=== PATIENT | male | born 1980 | race Caucasian/White ===

== ENCOUNTER 2018-05-29 08:53 | Day surgery (SDC) | payer BC ==
--- OUTSIDE RECORDS SUMMARY | 2018-05-29 09:00 | XMS REPORT ---
:1980 Author Organization e[employer]Works Care Team Providers Name Role Phone Brian Nikunj Provider Role Unavailable Allergies, Adverse Reactions, Alerts Substance Reaction Event Type N.K.D.A. Info Not Available Non Drug Allergy Problems Problem Type Condition Code Onset Dates Condition Status Assessment Mixed hyperlipidemia E78.2 Active Problem Irritability and anger R45.4 Active Assessment Generalized anxiety disorder F41.1 Active Problem Low back pain M54.5 Active Problem Generalized anxiety disorder F41.1 Active Problem Vitamin D deficiency E55.9 Active Problem Other chronic pain G89.29 Active Problem Primary insomnia F51.01 Active Problem Obstructive sleep apnea G47.33 Active Problem Mixed hyperlipidemia E78.2 Active Assessment Other chronic pain G89.29 Active Assessment Obstructive sleep apnea G47.33 Active Assessment Low back pain M54.5 Active Assessment Irritability and anger R45.4 Active Medications Medication Code Code Instructions Start End Status Dosage System Date Date Augmentin [facility] 63401328431 875-125 MG February 12, February 22, Active 1 tablet Orally every 12 2017 2018 hrs Zoloft [facility] 41720388867 100 MG Orally Active 1 tablet Once a day Duloxetine HCl [facility] 11486140629 30 MG Orally February 18, Active 1 capsule Once a day 2017 Wellbutrin SR [facility] 06597374006 150 MG Orally Active 1 tablet Twice a day Results No Known Results Summary Purpose eClinicalWorks Submission
--- OUTSIDE RECORDS SUMMARY | 2018-05-29 09:00 | XMS REPORT ---
:1980 Author Organization [employer] Care Team Providers Name Role Phone Nasir Torresh Provider Role Unavailable Allergies, Adverse Reactions, Alerts Substance Reaction Event Type N.K.D.A. Info Not Available Non Drug Allergy Problems Problem Type Condition Code Onset Dates Condition Status Problem Irritability and anger R45.4 Active Assessment Acute non-recurrent frontal J01.10 Active sinusitis Problem Low back pain M54.5 Active Problem Generalized anxiety disorder F41.1 Active Problem Vitamin D deficiency E55.9 Active Problem Other chronic pain G89.29 Active Problem Primary insomnia F51.01 Active Problem Obstructive sleep apnea G47.33 Active Problem Mixed hyperlipidemia E78.2 Active Medications Medication Code Code Instructions Start End Date Status Dosage System Date Zoloft [facility] 93880263513 100 MG Orally Active 1 tablet Once a day Wellbutrin SR [facility] 85403374553 150 MG Orally Active 1 tablet Twice a day Augmentin [facility] 05633573274 875-125 MG February 12, February 22, Active 1 tablet Orally every 12 2017 2018 hrs Results No Known Results Summary Purpose eClinicalWorks Submission
--- OUTSIDE RECORDS SUMMARY | 2018-05-29 09:00 | XMS REPORT ---
:1980 Author Organization [employer]Works Care Team Providers Name Role Phone Brian Nikunj Provider Role Unavailable Allergies, Adverse Reactions, Alerts Substance Reaction Event Type N.K.D.A. Info Not Available Non Drug Allergy Problems Problem Type Condition Code Onset Dates Condition Status Assessment Generalized anxiety disorder F41.1 Active Problem Primary insomnia F51.01 Active Problem Irritability and anger R45.4 Active Problem Vitamin D deficiency E55.9 Active Problem Low back pain M54.5 Active Problem Erectile dysfunction, unspecified N52.9 Active erectile dysfunction type Problem Mixed hyperlipidemia E78.2 Active Problem Other chronic pain G89.29 Active Problem Generalized anxiety disorder F41.1 Active Problem Obstructive sleep apnea G47.33 Active Assessment Low back pain M54.5 Active Assessment Irritability and anger R45.4 Active Assessment Other chronic pain G89.29 Active Assessment Erectile dysfunction, unspecified N52.9 Active erectile dysfunction type Assessment Obstructive sleep apnea G47.33 Active Assessment Mixed hyperlipidemia E78.2 Active Medications Medication Code Code Instructions Start End Status Dosage System Date Date Duloxetine HCl [facility] 13750845405 30 MG Orally Inactive 1 capsule Once a day Sertraline HCl ND 18707036878 50 MG Orally March 23, Active 1 tablet Once a day 2017 (Total 150 el=121 mg + 50 mg) Cialis [facility] 37403996169 20 MG Orally March 23, May 22, Active 1 tablet Once a day PRN 2017 [address] [facility] 23309500481 100 MG Orally Active 1 tablet Once a day (Total 150 rd=373 mg + 50 mg) Results No Known Results Summary Purpose eClinicalWorks Submission
[2018-05-29] MEDS ORDERED: Ringers Lactate 1,000 ML IV ONE ×2 (09:05→12:41)
[2018-05-29] MEDS: BUPIVACA 0.5%/EPI 0.0005%/PF 30 ML VIAL ONE ×2 (10:50→12:58)
[2018-05-29] MEDS ORDERED: PROPOFOL 200 MG/20 ML VIAL IV ONE (11:39)
[2018-05-29] MEDS ORDERED: ROCURONIUM 50 MG/5 ML VIAL IV ONE (11:40)
[2018-05-29] MEDS ORDERED: MIDAZOLAM HCL 2 MG/2 ML INJ ONE (11:40)
[2018-05-29] MEDS ORDERED: FENTANYL CITR 250 MCG/5 ML ONE (11:40)
[2018-05-29] MEDS ORDERED: LIDOCAINE 1% MPF 5 ML VIAL ONE (11:44)
[2018-05-29] MEDS: CEFAZOLIN/SWI 1gm 2 GM/20 ML SYR ONE ×2 (11:46→12:01)
[2018-05-29] MEDS ORDERED: ONDANSETRON HCL 40 MG/20 ML VIAL ONE (12:33)
[2018-05-29] MEDS ORDERED: KETOROLAC 30 MG/ML INJ ONE ×2 (12:33→15:03)
[2018-05-29] MEDS ORDERED: NEOSTIGMINE 1 MG/ML -5 ML SYRINGE ONE (12:33)
[2018-05-29] MEDS ORDERED: GLYCOPYRROLATE 0.2 MG/ML SYR ONE (12:33)
[2018-05-29] MEDS ORDERED: EPINEPHRINE/PF 1 MG/ML AMP ONE (12:35)
--- NOTE | 2018-05-29 13:00 | P.BOP ---
Preoperative diagnosis: PIPER Postoperative diagnosis: PIPER Primary procedure: UPPP Secondary procedure: tonsillectomy Estimated blood loss: 10ml Specimen: Bilat tonsils, SP, uvula Anesthesia: General Complications: None Fluids & blood products: crystalloid 1000ml Transferred to: Recovery Room Condition: Good
[2018-05-29] MEDS ORDERED: PROMETHAZINE 25 MG/ML VIAL ONE (13:16)
[2018-05-29] MEDS: MEPERIDINE HCL 50 MG/ML AMP ONE ×3 (13:17→13:40)
[2018-05-29] MEDS ORDERED: HYDROCOD 2.5mg-ACETAMIN 108mg/5mL Soln ONE (14:21)
[2018-05-29] MEDS ORDERED: KETOROLAC 30 MG/ML INJ IV ONE (15:00)
--- NOTE | 2018-06-01 12:57 | OP ---
Date of Procedure: 05/29/2018 Surgeon: Wen Wilks MD Preoperative Diagnosis: Mixed sleep apnea including significant obstructive sleep apnea, intolerance of CPAP therapy. Postoperative Diagnosis: Mixed sleep apnea including significant obstructive sleep apnea, intoleranc e of CPAP therapy. Procedure: Bilateral tonsillectomy and uvulopalatopharyngoplasty. Indication For Procedure: Thong Koroma is a 38-year-old who underwent a sleep study showing a signific ant AHI. The risks, benefits, and alternatives to the procedure were discussed with the patient who agreed to proceed. Description Of Procedure: The patient was brought to the operating room. He was placed under genera l anesthesia via oral endotracheal tube. The head of bed was turned 90 degrees and a shoulder roll w as placed for extension of the neck. The McIvor mouth gag was placed for exposure of the oropharynx. The patient was noted to have enlarged tonsils including significant submucosal component on palpat ion and decision was made to proceed with tonsillectomy. A red rubber catheter was passed through th e right naris and withdrawn through the mouth, and secured to the head drape for suspension of the so ft palate. The left tonsil was grasped with an Allis clamp and Bovie electrocautery was used to inci se the mucosa along the anterior pillar. The capsule of the tonsil was identified. The patient was noted to have significant chronic tonsillitis with scarring and increased vascularity along the capsu le of the tonsil. The tonsil also extended significantly towards the base of tongue and careful diss ection was undertaken to avoid damage to the underlying musculature. The left tonsil was completely removed and passed off as surgical specimen. There were no significant suspicious lesions, ulceratio ns, or masses noted in the tonsil. The right tonsil was removed in a similar fashion. Both tonsils were moderately enlarged with significant submucosal component and scarring making removal more diffi cult than average. After tonsillectomy, a tonsil ball was packed into the tonsillar fossa to aid in hemostasis and attention was turned to the palate, pharynx, and uvula. Soft palate was noted to be s ignificantly enlarged, elongated. There was also significant elongation of the uvula. Surgical opti ons were considered and decision was made for an anterior palatoplasty. A 1.5 x 0.5 cm area on the a nterior pillar was outlined. A needlepoint Bovie electrocautery was used to incise through the mucos a along this rectangle and the mucosal and submucosal surfaces were surgically removed and passed off as surgical specimen. The defect was then closed in an interrupted fashion using 4-0 chromic suture s. This closure allowed advancement of the soft palate superiorly and inferiorly without compromisin g the function of the musculature. This appeared to give good improvement in the anterior-posterior diameter of the oropharynx behind the soft palate. A partial uvulectomy was then performed. A DeBak ey was used to grasp the tip of the uvula extending it to its anatomic length. Approximately, 1/2 to 2/3 of the uvula was divided using the needlepoint Bovie electrocautery. The specimen was sent kenneth g with the soft palate tissue to pathology. The mucosal defect on the tip of the uvula was closed us ing 2-0 chromic interrupted sutures. The packing from the tonsillar fossa was then removed and the p harynx and tonsillar pillars were examined. The tonsillar fossas were noted to be hemostatic with no significant bleeding. A small incision was made in the left anterior pillar in order to allow berto r approximation of the pillars. The posterior pillar was advanced anteriorly and the anterior and po sterior pillars were sutured bilaterally in order to open up the lateral pharyngeal wall, the pillars were well approximated. The oropharynx was irrigated and suctioned. An orogastric tube was passed for removal of stomach contents, which was minimal. Overall blood loss was mild. The patient's qawalangin te was then injected with local anesthetic to aid in the immediate postop pain control, and the patie nt was returned to care of anesthesia for awakening and extubation in the operating room, which proce eded without difficulty. Disposition: The patient will be observed in the post anesthesia unit and if doing well, will likely be discharged home later today. LUTHER/EITAN Voice ID: [id number] Report ID: [id number]
== END 2018-05-29 15:45 | disposition home or self-care (01) ==
LOC: OR 08:53
PROVIDERS: ATTEND Otolaryngology
PROC: 0CTNXZZ Resection of Uvula, External Approach (ICD-10-PCS; 2018-05-29)
PROC: 0CTPXZZ Resection of Tonsils, External Approach (ICD-10-PCS; principal; 2018-05-29 11:15)
DX: G47.33 Obstructive sleep apnea (adult) (pediatric) (principal)
CPT/HCPCS: 88300; 88304; J0171; J0690; J2175; J2250; J2405; J2550; J2710

== ENCOUNTER 2021-04-10 20:40 | Emergency (ER) | payer BC ==
--- OUTSIDE RECORDS SUMMARY | 2021-04-10 20:43 | XMS REPORT | Continuity of Care Document ---
:1980 Author Organization [facility] t Address [address] [place] [address] Care Team Providers Name Role Phone Lab, Fam Pob I Attending Clinician Unavailable Doctor Unassigned, Name Attending Clinician Unavailable Singer FALLON Attending Clinician Problems Condition Condition Condition Status Onset Resolution Last Treating Co mments Source Name Details Category Date Date Treatment Clinician Date Irritabili Irritabili Problem Active [facility] Low back Low back Problem [facility] Generalize Generalize Problem Active [facility] anxiety d anxiety [facility] - disorder disorder [facility] Vitamin D Vitamin D Problem Active [facility] deficiency deficiency [facility] Other Other Problem Active [facility] chronic chronic [facility] Primary Primary Problem Active [facility] insomnia [facility] Obstructiv Obstructiv Problem Active [facility] sleep e sleep [facility] Mixed Mixed Problem Active [facility] hyperlipid hyperlipid [facility] - emia emia [facility] Erectile Erectile Problem Active [facility] dysfunctio dysfunctio [facility]y [facility]es - n, n, Memoria unspecifie unspecifie l d erectile d erectile Ou tpati dysfunctio dysfunctio en t n type n type Clinics Seasonal Seasonal Problem Active [facility] allergic allergic [facility] rhinitis, rhinitis, Pérez karan unspecifie unspecifie l d trigger d trigger Outp ati ent Clinics Decreased Decreased Problem Active [facility] libido libido [facility] Allergies, Adverse Reactions, Alerts This patient has no known allergies or adverse reactions. Medications Ordered Filled Start Stop Current Ordering Indication Dosage Frequency Signature Comments Components Source Medication Medication Date Date Medication? Clinician (SIG) Name Name Zoloft Zoloft Yes Nikunj 1 tablet [facility] Procedures This patient has no known procedures. Encounters Start End Encounter Admission Attending Care Care Encounter Source Date/Time Date/Time Type Type Clinicians Facility Department ID 2020-05-03 2020-05-03 Laboratory Lab, [facility] [id number] 13:38:46 13:58:46 Only Fam Pob [facility] [id number] [place] [id number] [facility] [id number] nal [address] 2020-05-03 2020-05-03 Letter Doctor JYOTI [id number] 00:00:00 00:00:00 (Out) Unassigned, MICHELLE [id number] [place] [facility] [id number] 2020-04-14 2020-04-14 Emergency Quiroz, [facility] [id number] 20:34:56 23:45:00 [place] Aguilar [id number] [place] [id number] [place] [id number] 2019-07-19 2019-07-19 [facility] [id number] [facility] 08:27:00 08:27:00 [employer] 2019-06-29 2019-06-29 [facility] [id number] 09:52:00 09:52:00 [employer] 2019-05-27 2019-05-27 [facility] [id number] [facility] 12[facility]09:00 12:09:00 [employer] [facility] 2019-05-18 2019-05-18 [facility] [id number] [facility] 10:30:00 10:30:00 [employer] [facility] Outpat[facility] Clinics 2018-11-10 2018-11-10 [facility] [id number] [facility] 08:37:00 08:37:00 [employer] [facility]pati ent Clinics 2018-11-02 2018-11-02 [facility] [id number] 11:00:00 11:00:00 [employer] [facility] Outpat[facility] ent Clinics 2018-10-05 2018-10-05 [facility] [id number] 11:45:00 11:45:00 t [facility] Outpat[facility] ent Clinics 2018-03-23 2018-03-23 [facility] [id number] [facility] 13:45:00 13:45:00 [employer] [facility] Outpati ent Clinics 2018-02-18 2018-02-18 [facility] [id number] [facility] 09:15:00 09:15:00 [employer] [facility] ent Clinics 2018-02-12 2018-02-12 [facility] [id number] [facility] 11:00:00 11:00:00 [facility] [employer] [facility] Outpati ent Clinics Results This patient has no known results.
[2021-04-10 21:33] LABS: Urine Blood Negative (Negative); Urine Glucose 1+ (Negative); Urine Protein Negative (Negative)
[2021-04-10] MEDS ORDERED: MORPHINE 2 MG/ML SYR ONE (21:42)
[2021-04-10] MEDS ORDERED: ONDANSETRON 4 MG/2 ML VIAL ONE (21:42)
[2021-04-10 21:45] LABS: Absolute Lymphocytes (CBC) 1.3 K/uL (0.7-4.9); Basophils % 0.6 % (0-1.3); Hematocrit 43.7 % (39.6-49.0); Lymphocytes % 21.1 % (15.3-44.8)
[2021-04-10 21:48] LABS: Barbiturates NEGATIVE (NEGATIVE); Benzodiazepines NEGATIVE (NEGATIVE); Cocaine NEGATIVE (NEGATIVE); METHAMPHETAM NEGATIVE (NEGATIVE); Methadone NEGATIVE (NEGATIVE); Opiates NEGATIVE (NEGATIVE); Phencyclidine NEGATIVE (NEGATIVE); THC Cannibis NEGATIVE (NEGATIVE)
[2021-04-10 21:52] LABS: Protime INR 1.1
[2021-04-10 21:59] LABS: ALT/SGPT 60 U/L (12-78); AST/SGOT 24 U/L (15-37); Albumin 4.3 g/dL (3.4-5.0); Alkaline Phosphatase 88 U/L (45-117); BUN Blood Urea Nitrogen 15 mg/dL (7-18); Bicarbonate 28 mmol/L (21-32); Bilirubin Direct 0.2 mg/dL (0-0.2); Bilirubin Total 0.9 mg/dL (0.2-1.0); Glucose Level 71 mg/dL (74-106); Magnesium 2.2 mg/dL (1.8-2.4); NT PRO-BNP 7 pg/mL (<125); Potassium 3.6 mmol/L (3.5-5.1); Protein, Total 8.1 g/dL (6.4-8.2); Sodium Level 140 mmol/L (136-145); Troponin (Emerg Dept Use Only) < 0.02 ng/mL (0.0-0.045)
[2021-04-11] MEDS ORDERED: KETOROLAC 30 MG/ML INJ ONE (01:32)
--- NOTE | 2021-04-11 02:28 | EDPHYS ---
Physician Documentation [facility] Name: Thong Koroma Age: 41 yrs Sex: Male : 1980 Arrival Date: 04/10/2021 Time: 20:41 Bed 16 Private MD: Jovita Clements K ED Physician Ander Mar HPI: 04/10 22:18 This 41 yrs old Male presents to ER via Ambulatory with complaints of Chest mh7 Pain, Shortness Of Breath. 22:18 The patient or guardian reports chest pain that is located primarily in the anterior mh7 chest wall, left. 22:19 The pain radiates to the left arm, left back. Associated signs and symptoms: Pertinent mh7 positives: shortness of breath, Pertinent negatives: abdominal pain, cough, diaphoresis, headache, lower extremity pain, lower extremity swelling, nausea, near syncope, palpitations, recent travel, syncope, vomiting. The chest pain is described as tightness. Duration: The patient or guardian reports multiple episodes, that are intermittent, that wax and wane. Modifying factors: The symptoms are alleviated by nothing. the symptoms are aggravated by nothing. Severity of pain: At its worst the pain was moderate today, in the emergency department the pain has improved moderately. Historical: - Allergies: 20:50 No Known Allergies; ca1 - Home Meds: 20:50 losartan 100 mg oral tab 1 tab once daily [Active]; Bystolic 5 mg oral tab 1 tab once ca1 daily [Active]; Zoloft Oral [Active]; - PMHx: 20:50 Hypertension; Sleep Apnea; ca1 - PSHx: 20:50 back surgery; sleep apnea surgery - throat; ca1 - Immunization history:: Client reports receiving the 2nd dose of the Covid vaccine, Client reports receiving the 1st dose of the Covid vaccine, Flu vaccine is up to date. - Social history:: Smoking status: Patient denies any tobacco usage or history of. Patient uses alcohol, occasionally. ROS: 22:19 Constitutional: Negative for fever, chills, and weight loss, Eyes: Negative for injury, mh7 pain, redness, and discharge, ENT: Negative for injury, pain, and discharge, Abdomen/GI: Negative for abdominal pain, nausea, vomiting, diarrhea, and constipation, : Negative for injury, bleeding, discharge, and swelling, MS/Extremity: Negative for injury and deformity, Skin: Negative for injury, rash, and discoloration, Neuro: Negative for headache, weakness, numbness, tingling, and seizure, Psych: Negative for depression, anxiety, suicide ideation, homicidal ideation, and hallucinations, Allergy/Immunology: Negative for hives, rash, and allergies, Endocrine: Negative for neck swelling, polydipsia, polyuria, polyphagia, and marked weight changes, Hematologic/Lymphatic: Negative for swollen nodes, abnormal bleeding, and unusual bruising. Exam: 22:19 Constitutional: This is a well developed, well nourished patient who is awake, alert, mh7 and in no acute distress. Head/Face: Normocephalic, atraumatic. Eyes: Pupils equal round and reactive to light, extra-ocular motions intact. Lids and lashes normal. Conjunctiva and sclera are non-icteric and not injected. Cornea within normal limits. Periorbital areas with no swelling, redness, or edema. Neck: Trachea midline, no thyromegaly or masses palpated, and no cervical lymphadenopathy. Supple, full range of motion without nuchal rigidity, or vertebral point tenderness. No Meningismus. Chest/axilla: Normal chest wall appearance and motion. Nontender with no deformity. No lesions are appreciated. Cardiovascular: Regular rate and rhythm with a normal S1 and S2. No gallops, murmurs, or rubs. Normal PMI, no JVD. No pulse deficits. Respiratory: Lungs have equal breath sounds bilaterally, clear to auscultation and percussion. No rales, rhonchi or wheezes noted. No increased work of breathing, no retractions or nasal flaring. Abdomen/GI: Soft, non-tender, with normal bowel sounds. No distension or tympany. No guarding or rebound. No evidence of tenderness throughout. Back: No spinal tenderness. No costovertebral tenderness. Full range of motion. Skin: Warm, dry with normal turgor. Normal color with no rashes, no lesions, and no evidence of cellulitis. MS/ Extremity: Pulses equal, no cyanosis. Neurovascular intact. Full, normal range of motion. Neuro: Awake and alert, GCS 15, oriented to person, place, time, and situation. Cranial nerves II-XII grossly intact. Motor strength 5/5 in all extremities. Sensory grossly intact. Cerebellar exam normal. Normal gait. Psych: Awake, alert, with orientation to person, place and time. Behavior, mood, and affect are within normal limits. Vital Signs: 20:46 BP 121 / 90; Pulse 76; Resp 16 S; Temp 97.6(TE); Pulse Ox 100% on R/A; Weight 107.95 kg ca1 (R); Height 5 ft. 7 in. (170.18 cm) (R); Pain 7/10; 22:26 BP 101 / 76; Pulse 71; Resp 16; Pulse Ox 96% on R/A; jm8 04/11 01:29 BP 95 / 74; Pulse 72; Resp 16; Pulse Ox 96% on R/A; 02:34 BP 102 / 78; Pulse 76; Resp 16; Pulse Ox 99% on R/A; 8 04/10 20:46 Body Mass Index 37.28 (107.95 kg, 170.18 cm) ca1 MDM: 02:25 Differential diagnosis: acute myocardial infarction, acute pericarditis, anxiety, mh7 coronary artery disease chest wall pain, costochondritis, gastroesophageal reflux disease (GERD), myocarditis, pericarditis, pneumonia, pneumothorax, pulmonary embolus. HEART Score: History: Moderately Suspicious (1), ECG: Normal (0), Age: < or = 45 years (0), Risk Factors: 1 or 2 risk factors (1), [Hypertension] Troponin: < or = 1 x Normal Limit (0), Total Score = 2. Data reviewed: vital signs, nurses notes, lab test result(s), cardiac enzymes, CBC, electrolytes, urinalysis, EKG, radiologic studies, plain films. Data interpreted: Pulse oximetry: on room air is 98 %. Interpretation: normal. Counseling: I had a detailed discussion with the patient and/or guardian regarding: the historical points, exam findings, and any diagnostic results supporting the discharge/admit diagnosis, lab results, radiology results, the need for outpatient follow up, to return to the emergency department if symptoms worsen or persist or if there are any questions or concerns that arise at home. Response to treatment: the patient's symptoms have resolved after treatment, the patient's blood pressure is in an acceptable range, mental status has returned to baseline, the patient no longer shows bradycardia, the patient is not short of breath, the patient is not tachycardic, the patient's pain is gone, the patient's temperature has normalized. 02:28 Patient medically screened. 7 04/10 21:17 Order name: Basic Metabolic Panel [facility] 04/10 21:17 Order name: CBC with Diff [facility] 04/10 21:17 Order name: LFT's [facility] 04/10 21:17 Order name: Magnesium [facility] 04/10 21:17 Order name: NT PRO-BNP [facility] 04/10 21:17 Order name: PT-INR [facility] 04/10 21:17 Order name: Troponin (emerg Dept Use Only) [facility] 04/10 21:17 Order name: D-Dimer [facility] 04/10 21:17 Order name: UDS [facility] 04/10 21:33 Order name: Urine Dipstick-Ancillary; Complete Time: 23:15 EDMS 04/10 21:48 Order name: Urine Drug Screen; Complete Time: 23:15 [facility] 04/10 21:52 Order name: CBC with Automated Diff; Complete Time: 23:15 [facility] 04/10 21:59 Order name: Basic Metabolic Panel; Complete Time: 23:15 EDMS 04/10 21:59 Order name: Liver (Hepatic) Function; Complete Time: 23:15 EDMS 04/10 21:17 Order name: XRAY Chest (1 view) [facility] 04/10 21:17 Order name: EKG; Complete Time: 21:18 [facility] 04/10 21:17 Order name: Cardiac monitoring; Complete Time: 21:32 [facility] 04/10 21:17 Order name: EKG - Nurse/Tech; Complete Time: 21:32 [facility] 04/10 21:17 Order name: IV Saline Lock; Complete Time: 21:32 [facility] 04/10 21:17 Order name: Labs collected and sent; Complete Time: 21:32 [facility] 04/10 21:59 Order name: Troponin (Emerg Dept Use Only); Complete Time: 23:15 EDMS 04/10 21:59 Order name: NT PRO-BNP; Complete Time: 23:15 EDMS 04/10 21:59 Order name: Magnesium; Complete Time: 23:15 EDMS 04/10 22:01 Order name: Protime (+INR); Complete Time: 23:15 EDMS 04/10 22:01 Order name: D-Dimer; Complete Time: 23:15 [facility] 04/11 01:02 Order name: Troponin (emerg Dept Use Only) [facility] 04/11 01:54 Order name: Troponin (Emerg Dept Use Only); Complete Time: 02:22 [facility] 04/10 21:17 Order name: O2 Per Protocol; Complete Time: 21:32 [facility] 04/10 21:17 Order name: O2 Sat Monitoring; Complete Time: 21:32 [facility] 04/10 21:17 Order name: Urine Dipstick-Ancillary (obtain specimen); Complete Time: 21:35 [facility] Administered Medications: 04/10 21:33 Drug: Zofran (Ondansetron) 4 mg Route: IVP; Site: left antecubital; [facility] 04/11 02:36 Follow up: Response: No adverse reaction [facility] 04/10 21:34 Drug: morphine 2 mg Route: IVP; Site: left antecubital; [facility] 04/11 02:36 Follow up: Response: No adverse reaction [facility] 01:19 Drug: TORadol (ketorolac) 30 mg Route: IVP; Site: left antecubital; [facility] 02:35 Follow up: Response: No adverse reaction [facility] Disposition: 04/11/21 02:28 Discharged to Home. Impression: Chest pain, unspecified. - Condition is Stable. - Discharge Instructions: Nonspecific Chest Pain, [id number]. - Medication Reconciliation Form, Thank You Letter, Antibiotic Education, Prescription Opioid Use form. - Follow up: Private Physician; When: 1 - 2 days; Reason: Worsening of condition, Recheck today's complaints, Continuance of care, Re-evaluation by your physician. - Problem is an ongoing problem. - Symptoms have improved. Signatures: Dispatcher [employer] [facility] Laurita Sun RN RN 3 Columba Cloud RN RN ca1 Andre Mar MD MD [facility] Romie Tan RN RN 8 Corrections: (The following items were deleted from the chart) 04/10 22:20 22:18 The pain radiates to the left arm, [place] [id number] 04/11 02:36 02:28 04/11/2021 02:28 Discharged to Home. Impression: Chest pain, unspecified. [facility] Condition is Stable. Forms are Medication Reconciliation Form, Thank You Letter, Antibiotic Education, Prescription Opioid Use. Follow up: Private Physician; When: 1 - 2 days; Reason: Worsening of condition, Recheck today's complaints, Continuance of care, Re-evaluation by your physician. Problem is an ongoing problem. Symptoms have improved. mh7
--- NOTE | 2021-04-11 02:28 | ER ---
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 Been to the supervisor drapery hanging ca1 Friday, had seen stress on my heart and said I need to do a stress test once my BP is controlled. Today, chest pain has gotten worse, radiates to the back, L elbow. Chest pain with SOB now, was not before. Coronavirus screen: Client denies travel out of the [place] in the last 14 days. shortness of breath, Client presents with at least one sign or symptom that may indicate coronavirus-19. Standard/surgical mask placed on the client. Provider contacted for isolation considerations. Ebola Screen: Patient negative for fever greater than or equal to 101.5 degrees Fahrenheit, and additional compatible Ebola Virus Disease symptoms Patient denies exposure to infectious person. Patient denies travel to an Ebola-affected area in the 21 days before illness onset. No symptoms or risks identified at this time. Initial Sepsis Screen: Does the patient meet any 2 criteria? No. Patient's initial sepsis screen is negative. Does the patient have a suspected source of infection? No. Patient's initial sepsis screen is negative. Risk Assessment: Do you want to hurt yourself or someone else? Patient reports no desire to harm self or others. Onset of symptoms was April 10, 2021. 20:46 Method Of Arrival: Ambulatory ca1 20:46 Acuity: REG 3 ca1 Historical: - Allergies: 20:50 No Known Allergies; ca1 - Home Meds: 20:50 losartan 100 mg oral tab 1 tab once daily [Active]; Bystolic 5 mg oral tab 1 tab once ca1 daily [Active]; Zoloft Oral [Active]; - PMHx: 20:50 Hypertension; Sleep Apnea; ca1 - PSHx: 20:50 back surgery; sleep apnea surgery - throat; ca1 - Immunization history:: Client reports receiving the 2nd dose of the Covid vaccine, Client reports receiving the 1st dose of the Covid vaccine, Flu vaccine is up to date. - Social history:: Smoking status: Patient denies any tobacco usage or history of. Patient uses alcohol, occasionally. Screenin:34 Abuse screen: Denies threats or abuse. Denies injuries from another. Nutritional jm8 screening: No deficits noted. Tuberculosis screening: No symptoms or risk factors identified. Fall Risk None identified. Assessment: 21:33 General: Appears in no apparent distress. uncomfortable, Behavior is calm, cooperative, jm8 appropriate for age. Pain: Complains of pain in chest Pain does not radiate. Pain currently is 10 out of 10 on a pain scale. Pain began 3 hours ago. Noted to be quiet/stoic. Neuro: No deficits noted. Level of Consciousness is awake, alert, obeys commands, Oriented to person, place, time. Cardiovascular: Reports chest pain, shortness of breath, Patient's skin is warm and dry. Rhythm is regular Chest pain is described as Pain is 10 out of 10 on a pain scale. Respiratory: No deficits noted. Airway is patent Trachea midline Respiratory effort is even, unlabored, Respiratory pattern is regular, symmetrical. GI: No deficits noted. No signs and/or symptoms were reported involving the gastrointestinal system. : No deficits noted. No signs and/or symptoms were reported regarding the genitourinary system. EENT: No deficits noted. No signs and/or symptoms were reported regarding the EENT system. Vital Signs: 20:46 BP 121 / 90; Pulse 76; Resp 16 S; Temp 97.6(TE); Pulse Ox 100% on R/A; Weight 107.95 kg ca1 (R); Height 5 ft. 7 in. (170.18 cm) (R); Pain 7/10; 22:26 BP 101 / 76; Pulse 71; Resp 16; Pulse Ox 96% on R/A; jm8 04/11 01:29 BP 95 / 74; Pulse 72; Resp 16; Pulse Ox 96% on R/A; jm8 02:34 BP 102 / 78; Pulse 76; Resp 16; Pulse Ox 99% on R/A; jm8 04/10 20:46 Body Mass Index 37.28 (107.95 kg, 170.18 cm) ca1 ED Course: 04/10 12:15 Inserted saline lock: 20 gauge in left antecubital area, using aseptic technique. Blood ap3 collected. 20:41 Patient arrived in ED. am4 20:41 Jovita Clements MD is Private Physician. am4 20:49 Triage completed. ca1 20:50 Arm band placed on right wrist. ca1 20:56 Andre Mar MD is Attending Physician. [facility] 21:35 Patient has correct armband on for positive identification. Bed in low position. Call jm8 light in reach. Side rails up X2. Pulse ox on. NIBP on. 21:35 Patient maintains SpO2 saturation greater than 95% on room air. 8 04/11 02:36 No provider procedures requiring assistance completed. IV discontinued, intact. jm8 Administered Medications: 04/10 21:33 Drug: Zofran (Ondansetron) 4 mg Route: IVP; Site: left antecubital; 3 04/11 02:36 Follow up: Response: No adverse reaction [facility] 04/10 21:34 Drug: morphine 2 mg Route: IVP; Site: left antecubital; ap3 04/11 02:36 Follow up: Response: No adverse reaction [facility] 01:19 Drug: TORadol (ketorolac) 30 mg Route: IVP; Site: left antecubital; [facility] 02:35 Follow up: Response: No adverse reaction [facility] Outcome: 02:28 Discharge ordered by . [facility] 02:35 Discharged to home ambulatory. [facility] 02:35 Condition: good 02:35 Discharge instructions given to patient, Instructed on discharge instructions, follow up and referral plans. Demonstrated understanding of instructions, follow-up care. 02:36 Patient left the ED. jm8 Signatures: Laurita Sun RN RN ap3 Columba Cloud RN RN ca1 Andre Mar MD MD mh7 Martinez, Ashley [facility] Romie Tan RN RN jm8
[2021-04-11 02:42] VITALS: TEMP 97.6
[2021-04-11 02:47] VITALS: BP 102/78; O2SAT 99
--- NOTE | 2021-04-11 13:41 | RAD REPORT ---
EXAM DESCRIPTION: Chest Single View 04/11/2021 12:22 AM CDT CLINICAL HISTORY: 41 years, Male, CHEST PAIN COMPARISON: None. FINDINGS: Single view of the chest was obtained portable. No prior films are available for compariso n. The cardiomediastinal silhouette demonstrate to be unremarkable. The heart is not enlarged. The thoracic aorta is unremarkable. There is no evidence for pneumothorax. Costophrenic angles are sharp. No areas of consolidation or masses are seen. The rest of the soft tissue and bony structures de monstrate to be unremarkable. IMPRESSION: NO ACUTE CARDIOPULMONARY DISEASE SEEN. Electronically signed by: Luan Gillis MD 04/11/2021 12:22 AM CDT Due to temporary technical issues with the PACS/Fluency reporting system, reports are being signed by the in house radiologists without review as a courtesy to insure prompt reporting. The interpreting radiologist is fully responsible for the content of the report.
--- NOTE | 2021-04-11 16:31 | EKG ---
Test Date: 2021-04-10 Test Time: 20:58:37 Irrigation Worker: JESÚS MEASUREMENT RESULTS: Intervals: Rate: 77 DC: 164 QRSD: 98 QT: 390 QTc: 441 [place]: P: 23 DC: 164 QRS: 22 T: 7 INTERPRETIVE STATEMENTS: Normal sinus rhythm Normal ECG No previous ECG available for comparison Electronically Signed On 04-11-21 16:29:44 CDT by Tarik Sandoval
== END 2021-04-11 02:36 | disposition home or self-care (01) ==
LOC: ER 20:40
DX: R07.9 Chest pain, unspecified (principal); I10 Essential (primary) hypertension
CPT/HCPCS: 93005; 85025; 80048; 36415; 83735; 85610; 85379; 80076; 81003; 84484 ×2; 83880; 80307; 71045; J2270; J2405; 96374; 96375; 99284

== ENCOUNTER 2024-08-27 07:45 | Day surgery (SDC) | payer BC ==
--- NOTE | 2024-08-26 11:58 | EKG ---
Test Date: 2024-08-24 Test Time: 10:34:26 Application Support Developer: IRENE MEASUREMENT RESULTS: Intervals: Rate: 88 CA: 144 QRSD: 98 QT: 374 QTc: 452 [place]: P: 29 CA: 144 QRS: 5 T: 51 INTERPRETIVE STATEMENTS: Normal sinus rhythm Nonspecific T wave abnormality Abnormal ECG Compared to ECG 04/10/2021 20:58:37 T-wave abnormality now present Electronically Signed On 08-26-24 11:56:20 SHELLFISH PROCESSING MACHINE TENDER by Álvaro Diana
[2024-08-27] MEDS ORDERED: Ringers Lactate 1,000 ML IV ONE (08:13)
[2024-08-27] MEDS ORDERED: LIDOCAINE 1% MPF 5 ML VIAL ONE (09:44)
[2024-08-27] MEDS ORDERED: propofoL 200 MG/20 ML VIAL IV ONE ×2 (09:44→10:55)
--- NOTE | 2024-08-27 11:11 | P.OP ---
Date of Service: 08/27/24 Surgeon: Dr. Wen Wilks Occupational Therapy Assist: None Procedure: Evaluation of sleep disordered breathing by examination of upper airway using an endoscope; CPT: 26614 Preoperative diagnosis: Moderate or severe obstructive sleep apnea with positive airway pressure intolerance. Body mass index 36.2 Postoperative diagnosis: Moderate or severe sleep apnea with positive pressure airway intolerance. Anesthesia: IV sedation Estimated blood loss: None Complications: None Brief clinical history: This is a 44-year-old patient with a history of moderate to severe symptomatic obstructive sleep apnea who is intolerant and unable to achieve benefit with positive pressure therapy. The patient was diagnosed with sleep apnea including an AHI of 63 and minimum oxygen concentration of 81% in December 2017. His AHI was 9.8 with an oxygen jeramy of 85% with 41 central and 7 obstructive events on his CPAP titration but was intolerant of UPPP. In 2007, the patient underwent tonsillectomy with anterior soft palate palatoplasty in 2017. The patient did not initially follow through with his postoperative sleep study and noted that his snoring and daytime fatigue were increasing during the spring 2018. He refused repeat trial of CPAP due to prior intolerance and tingling in the hose. At that time, he was referred to the [facility] for discussion of hypoglossal nerve stimulator. He subsequently underwent a sleep study in March 2019 demonstrating an AHI of 35.9 with an oxygen jeramy of 80% which included 19 obstructive apneas, 187 hypopneas and 2 central events with poor sleep quality, poor sleep efficiency and abnormal sleep architecture with loud snoring. Due to the relative newness of the treatment he elected for observation but return to my clinic in the fall 2023 with motivation to treat his persistent severe sleep apnea. They present today for drug-induced sleep endoscopy to better characterize the location and pattern of obstruction and to predict appropriate medical and/or surgical options moving forward Procedure findings: There was no evidence of complete concentric palatal obstruction and they appear to be a candidate anatomically for hypoglossal nerve stimulation therapy. However, the patient was not observed to have significant collapse of the base of tongue and did have moderate to severe collapse of the lateral hypopharyngeal ramires during witnessed obstructive events and snoring. Description of procedure: The patient was brought to the endoscopy suite and was administered anesthesia via standard drug-induced sleep endoscopy protocol. The patient was administered propofol while under monitoring including oxygen concentration, CO2, blood pressure, and pulse under conditions felt to mimic sleep. The patient was nonresponsive to verbal commands but maintained spontaneous respiration. Patient was noted to have observed apnea and snoring consistent with diagnosis of obstructive sleep apnea. Under these conditions, the flexible endoscope was inserted into both sides of the nose and advanced to the nasopharynx, and oral pharynx with observation of the larynx. The flexible scope was passed initially through the left nasal cavity. The patient was noted to have left septal deviation with a large septal spur which impaired passage of the scope. The scope was then passed through the right nasal cavity into the nasopharynx. During initial observations, there was minimal collapse of the soft palate. There were observed respiratory efforts but no audible snoring. The scope was then passed further towards the larynx. The vocal cords and epiglottis and vallecular space and piriforms were unremarkable in regards to anatomy. During initiation of snoring, there was minimal observed collapse of the base of tongue but there was visualized vibration and collapse of the lateral hypopharyngeal ramires. The scope was then slightly withdrawn for additional observation of the palate. During snoring, there was partial concentric collapse of the soft palate. At the conclusion of the exam, the scope was withdrawn. There was no evidence of any injury to the nasal mucosa and no evidence of active epistaxis. The patient was monitored with spontaneous ventilation until the patient's level of alertness increased and they responded to verbal commands and demonstrated active and intact control of their airway. The patient was then transferred to appropriate recovery prior to discharge. In summary, there was no evidence of complete concentric palatal obstruction. There were no absolute contraindications to implant for hypoglossal nerve stimulation. Will plan to discuss findings with the patient prior to initiating a plan for surgery. I was present for and personally performed the entire procedure.
[2024-08-27 12:23] VITALS: TEMP 97.7
[2024-08-27 12:24] VITALS: BP 149/119; O2SAT 98
== END 2024-08-27 11:45 | disposition home or self-care (01) ==
LOC: OR 07:45
PROVIDERS: ATTEND Otolaryngology
PROC: 0CJY8ZZ Inspection of Mouth and Throat, Via Natural or Artificial Opening Endoscopic (ICD-10-PCS; principal; 2024-08-27 09:30)
DX: G47.39 Other sleep apnea (principal); Z68.36 Body mass index [BMI] 36.0-36.9, adult
CPT/HCPCS: 93005; 42975; J2704; J2003; J7120

== ENCOUNTER 2024-10-08 08:54 | Day surgery (SDC) | payer BC ==
[2024-10-08] MEDS: Ringers Lactate 1,000 ML IV ONE (09:15)
[2024-10-08] MEDS ORDERED: MIDAZOLAM HCL 2 MG/2 ML INJ ONE (12:29)
[2024-10-08] MEDS ORDERED: FENTANYL CITR 100 MCG/2 ML ONE ×5 (12:29→20:16)
[2024-10-08] MEDS ORDERED: LIDOCAINE 2% MPF 5 ML VIAL ONE (12:29)
[2024-10-08] MEDS ORDERED: propofoL 200 MG/20 ML VIAL IV ONE (12:29)
[2024-10-08] MEDS ORDERED: ROCURONIUM 50 MG/5 ML VIAL IV ONE (12:34)
[2024-10-08] MEDS ORDERED: ONDANSETRON 4 MG/2 ML VIAL ONE (12:36)
[2024-10-08] MEDS: FENTANYL CITR 100 MCG/2 ML IV ONE (13:38)
[2024-10-08] MEDS: LIDOCAINE HCL/EPINEPHRINE 20 ML MDV ONE (14:30)
[2024-10-08] MEDS: CEFAZOLIN SODIUM 1 GM/VIAL ONE (14:35)
[2024-10-08] MEDS ORDERED: dexAMETHasone 10 MG/ML VIAL ONE (14:36)
[2024-10-08] MEDS ORDERED: Phenylephrine HCl 10 MG/ML 1 ML VIAL ONE ×2 (14:37→15:03)
[2024-10-08] MEDS ORDERED: METHOCARBAMOL 1,000 MG/10 ML VIAL IV ONE (15:08)
[2024-10-08] MEDS ORDERED: NS 0.9% VIAL 10 ML ONE (15:43)
[2024-10-08] MEDS ORDERED: Mastisol Adhesive Liq ONE (18:51)
--- NOTE | 2024-10-08 19:16 | P.OP ---
Date of Service: 10/08/24 Surgeon: Dr. Wen Wilks CPT: 38347 insertion of hypoglossal nerve neurostimulator electrode and generator and breathing sensor electrode Preoperative diagnosis: Obstructive sleep apnea with positive airway pressure intolerance Postoperative diagnosis: Same Anesthesia: General via endotracheal tube Estimated blood loss: 10ml Complications: [None] Intraoperative findings: Initial placement of cuff showed mixed stimulation with protraction at higher voltages but retraction at lower voltages requiring reposition and more extensive exploration of the hypoglossal nerve branches. With repositioning of the cuff the patient was noted to have good protrusion at all tested voltages and programs. Brief clinical history: This is a 44-year-old patient with a history of moderate to severe obstructive sleep apnea and an associated body mass index of 35.6. The patient was intolerant and unable to achieve benefit from positive pressure therapy. The patient has passed the clinical, polysomnographic, and endoscopic screening criteria and presents today for implant Procedure description: The patient was brought to the operating room and placed under general anesthesia via endotracheal intubation. The head of bed was turned 180 degrees. The patient's neck and external anatomy was palpated and examined with planned incisions marked with a surgical pen. Monitoring electrodes were placed within the genioglossus and hypoglossal muscle and connected to the NIM box for intraoperative nerve monitoring. The grounding electrode was placed in the patient's left shoulder. The patient's face, neck, and chest was prepped and draped in a sterile fashion with the head turned to the left for best exposure of the right neck. A modified submandibular incision was made through the skin, approximately 2 cm below the inferior aspect of the mandible. Dissection was carried down through the subcutaneous tissue and platysma. The platysma was divided and additional dissection was carried out for identification of the anterior/inferior border of the submandibular gland. During dissection there is a prominent lymph node that was normal in size and morphology but was removed and sent to pathology for additional diagnostic consideration. Suspicion for true pathology was low. The digastric tendon was identified. 2 silk sutures were placed in the digastric tendon to aid in inferior and anterior retraction. Dissection continued down into the digastric triangle and the posterior border of the mylohyoid muscle was freed and retracted anteriorly. With balanced retraction, the hypoglossal nerve was identified and carefully dissected up towards the floor of the mouth. The superior/posterior branches innervating the hyoglossus muscle were identified visually with anatomic clues and NIM stimulation. Once the anterior/inferior branches of the hypoglossal nerve were isolated, the cuff electrode for the hypoglossal nerve stimulator (C1778; [id number]) was placed distal to these branches innervating the genioglossus, transverse, and vertical muscles. A second 5 cm incision was made in the right upper chest over the second intercostal space, approximately 3 cm lateral to the sternal margin. Dissection was carried down through the skin and subcutaneous tissue to the fascia of the pectoralis muscle. A suprafascial inferior pocket for the generator was created with blunt dissection and the LigaSure. The pectoralis major fascia was dissected directly over the second intercostal space with subsequent blunt dissection through the muscle body. The pectoralis was retracted to expose the fatty layer just superficial to the external intercostal muscle. The fatty layer was carefully and bluntly dissected to expose the external intercostal muscles. A small fasciotomy through the external intercostals was performed and the respiratory sensing lead (C1778; [id number]) was advanced with the sensor facing the pleura into the interfascial plane between the external and internal intercostals. The sensing lead was anchored with 3-0 silk to the fascia of the external intercostals. Secondary anchoring sutures of 3-0 silk were placed to the pectoralis major fascia, allowing adequate slack between the anchors. The stimulation lead was then tunneled in a subplatysmal plane with blunt dissection under direct visualization and brought out to the subclavicular pocket where both the stimulation lead and respiratory sensing lead were connected to the implantable pulse generator, using the 2 person, 3 handed chloe cartagena. The implantable pulse generator (C1767; [id number]) was placed in the subclavicular subcutaneous pocket ensuring lead body was deep to the generator and secured with air knots to the pectoralis fascia using 2-0 silk suture. Initial diagnostic evaluation revealed retraction of the tongue low voltages suggesting inadvertent inclusion of a small retractor branch. Attention was then returned to the neck subsite and the cuff was examined in regards to its positioning. I elected to remove the cuff and perform further dissection around and of the nerve including further elevation of the large b ridging vein towards the distal end of the nerve. The cuff was then repositioned slightly more distally to its initial placement. Additional diagnostic evaluation confirmed good placement of the stimulation cuff as demonstrated by activation of the genioglossus, and transverse and vertical muscles resulting in unhindered, stiffened tongue protrusion confirmed visually. Diagnostic evaluation also confirmed good respiratory sensor placement as demonstrated by sensing waveform with good rise and fall associated with patient respirations. The stimulation lead was anchored to the digastric tendon using the 2 previously placed silk sutures. Slack between the cuff and the anchor was gently tucked deep to the submandibular gland. All the wounds were thoroughly irrigated and closed in 3 layers with deep Polysorb sutures and 4-0 Monocryl subcuticular sutures. Mastisol and Steri- Strips were applied followed by pressure dressings. The patient was awakened, extubated, and transferred to the recovery room in stable condition. I was present for and performed the entire procedure. All sponge and needle counts were confirmed correct by the operating room staff prior to final closure. Postoperative plan: The patient will be discharged home later today in the care of their family and follow-up with Dr. Wilks in 10 days for wound check and suture removal if required. They will follow-up with the earth science professor in about 6 weeks for planned activation of the device.
--- NOTE | 2024-10-08 19:38 | RAD REPORT ---
EXAMINATION: ONE VIEW CHEST XR CLINICAL INDICATION: Male, 44 years old.,S/P INSPIRE TECHNIQUE: Frontal chest projection is submitted. Examination is limited by patient positioning and t echnique. COMPARISON: 04/10/2021 FINDINGS: The lungs are under inflated. Right apical hazy airspace opacity. No pneumothorax or sizable effusio n. The heart is normal in size. Mediastinal contours show tortuosity of the thoracic aorta. Right chest wall battery pack in place. Electrode courses along the right lower neck. IMPRESSION: Right apical hazy airspace opacity, may reflect developing pneumonia or atelectasis.
--- NOTE | 2024-10-08 19:39 | RAD REPORT ---
EXAMINATION: ONE VIEW NECK XR CLINICAL INDICATION: Male, 44 years old.,S/P INSPIRE TECHNIQUE: Lateral neck projection is submitted. Examination is limited by patient positioning and te chnique. COMPARISON: No prior exam. FINDINGS: No stimulator electrode terminates along the floor of mouth. No abnormal kinking or discontinuity. Pr evertebral soft tissues are unremarkable. IMPRESSION: Postoperative appearance as above.
[2024-10-08] MEDS: HYDROMORPHONE HCL 1 MG/ML INJ ONE (19:43)
[2024-10-08] MEDS: HYDROMORPHONE HCL 2 MG/ML inj ONE (19:53)
[2024-10-08] MEDS ORDERED: HYDROCODONE/APAP 10/325 TAB PO ONE (20:23)
[2024-10-08 21:21] VITALS: TEMP 98
[2024-10-08] MEDS: TRAMADOL HCL 50 MG TAB ONE (22:00)
[2024-10-08 22:21] VITALS: BP 136/85; O2SAT 100
== END 2024-10-08 22:17 | disposition home or self-care (01) ==
LOC: OR 08:54
PROVIDERS: ATTEND Otolaryngology
PROC: 0JH63MZ Insertion of Stimulator Generator into Chest Subcutaneous Tissue and Fascia, Percutaneous Approach (ICD-10-PCS; principal; 2024-10-08 13:56)
DX: G47.33 Obstructive sleep apnea (adult) (pediatric) (principal); Z68.36 Body mass index [BMI] 36.0-36.9, adult
CPT/HCPCS: 88305; 71045; 70360; 64582; A4216; J2704; J2371 ×2; J2003; J2250; J1171 ×2; J3010 ×5; J1100; J2405; J2800; J7120; J0690

== ENCOUNTER 2024-10-16 13:12 | Observation (INO) | payer BC ==
--- OUTSIDE RECORDS SUMMARY | 2024-10-16 13:15 | XMS REPORT | Continuity of Care Document ---
Author Name Unknown Address [address] [facility] [place] [address] [facility] Address [address] [facility]. [address] [place] [address] Care Team Providers Care Career Development Manager Name Role Phone Pcp, Patient Does Not Have A Primary Care Physic shima De Sutton Attending Clinician [phone] DE MENDENHALL Attending Clinician Unavaila IQRA Cha Attending Clinician Unavailable Ebrahim Iqra SEBASTIAN Attending Clinician [phone] Unknown, Attending Attending Clinician Unavailab le Doctor Unassigned, Basco Attending Clinician U JEFE Bartlett Attending Clinician Unavailable Lab, Adc Fam Pob I Attending Clinician Unavailab Sierra Estrada Attending Clinician [phone] SIERRA BARRETT Attending Clinician Unavailable Manav Quiroz DO Attending Clinician [phone] MANAV QUIROZ Attending Clinician Unavailable DE MENDENHALL Admitting Clinician Unavaila ble Payers Payer Name Policy Type Policy Number Effective Date Expirati on Date Source Problems Condition Name Condition Details Condition Category Status Onset Date Resolution Date Last Treatment Date Treating Clinician Comments Source Irritabili ty and anger Irritabili ty and anger Problem Active [facility] Low back pain Low back pain Problem Active [facility] Generalize d anxiety disorder Generalize d anxiety disorder Problem Active [facility] Vitamin D deficiency Vitamin D deficiency Problem Active [facility] Other chronic pain Other chronic pain Problem Active [facility] Primary insomnia Primary insomnia Problem Active [facility] Obstructiv e sleep apnea Obstructiv e sleep apnea Problem Active [facility] Mixed hyperlipid emia Mixed hyperlipid emia Problem Active [facility] Erectile dysfunctio n, unspecifie d erectile dysfunctio n type Erectile dysfunctio n, unspecifie d erectile dysfunctio n type Problem Active [facility] Seasonal allergic rhinitis, unspecifie d trigger Seasonal allergic rhinitis, unspecifie d trigger Problem Active [facility] Decreased libido Decreased libido Problem Active [facility] Allergies, Adverse Reactions, Alerts Allergy Name Allergy Type Status Severity Reaction(s) Onset Date Inactive Date Treating Clinician Comments Source NO KNOWN ALLERGIE S Drug Class Active [facility] Social History Social Habit Start Date Stop Date Quantity Comments Source Gender identity [facility] Sexual orientation U [facility] Exposure to SARS-CoV-2 (event) 2020-03-15 00:00:00 2020-04-14 20:57:00 Not sure [facility] Sex Assigned At 1980 00:00:00 1980 00:00:00 [facility] Smoking Status Start Date Stop Date Source Tobacco smoking consumption unknown [facility] Medications Ordered Medication Name Filled Medication Name Start Date Stop Date Current Medication? Ordering Clinician Indication Dosage Frequency Signature (SIG) Comments Components Source NaCl 0.9% (NS) bolus infusion 1,000 mL 06-02 16:45: 00 06-02 18:51 :00 No 1000mL at 999 mL/hr, 1,000 mL, IV Infusion, ONCE, 1 dose, On Fri06/02/23 at 1145, [facility] acetaminoph en (TYLENOL) tablet 1,000 mg 06-02 16:30: 00 06-02 16:21 :00 No 1000mg 1,000 mg, Oral, ONCE, 1 dose, On Fri06/02/23 at 1130, [facility] ondansetron (ZOFRAN (PF)) injection 4 mg 06-02 16:00: 00 06-02 16:22 :00 No 4mg 4 mg, Slow IV Push, ONCE, 1 dose, On Fri06/02/23 at 1100, [facility] morpHINE (4 mg/mL) injection 4 mg 06-02 16:00: 00 06-02 16:22 :00 No 4mg 4 mg, Slow IV Push, ONCE, 1 dose, On Fri06/02/23 at 1100, STAT [facility] ibuprofen (IBU) tablet 800 mg 06-02 15:30: 00 06-02 14:40 :00 No [id number] 800mg [facility] ketorolac (TORADOL) injection 30 mg 04-15 04:30: 00 04-15 03:34 :00 No 30mg 30 mg, Intramuscu lar, ONCE, 1 dose, Fri04/14/20 at 2330, [facility]
Fa culty member approving Restricted medication : MANAV QUIROZ [facility] pantoprazol e (PROTONIX) EC tablet 40 mg 04-15 03:00: 00 04-15 01:59 :00 No 40mg 40 mg, Oral, ONCE, 1 dose, Fri04/14/20 at 2200, [facility] diphenhydrA MINE (BENADRYL) tablet 50 mg 04-15 03:00: 00 04-15 01:59 :00 No 50mg 50 mg, Oral, ONCE, 1 dose, Fri04/14/20 at 2200, [facility] famotidine (PEPCID AC) tablet 20 mg 04-15 03:00: 00 04-15 01:58 :00 No 20mg 20 mg, Oral, ONCE, 1 dose, 04/14/20 at 2200, [facility] dexamethaso ne (DECADRON PHOSPHATE) injection 10 mg 04-15 03:00: 00 04-15 02:01 :00 No 10mg 10 mg, Oral, ONCE, 1 dose, Fri04/14/20 at 2200, Routine [facility] clindamycin (CLEOCIN HCL) capsule 300 mg 04-15 01:48: 09 04-15 02:02 :00 No 300mg 300 mg, Oral, O.R. HOLDING ONCE, 1 dose, Starting Fri04/14/20 at 2048, Until Fri04/14/20 at 2102, [facility], Surgery/Pr ocedure
Reason for Anti-Infec tive: Empiric Therapy for Suspected Infection& lt;br>Empi susan Therapy Site: Skin / Soft tissue
Duration of therapy: 72 hours
R estricted use approved by: ADC PROVIDER [facility] methylPREDN ISolone (MEDROL, HAMLET,) 4 mg tablets 04-14 00:00: 00 Yes [id number] Take by mouth SEE-INSTRU CTIONS. follow package directions [facility] acetaminoph en-codeine (TYLENOL-CO DEINE #3) 300-30 mg tablet 04-14 00:00: 00 Yes [id number] 1{tbl} Take 1 tablet by mouth every 4 (four) hours as needed for Pain (scale 7-10). [facility] ondansetron 4 mg disintegrat ing tablet 04-14 00:00: 00 Yes [id number] 4mg Take 1 tablet by mouth every 8 (eight) hours as needed for Nausea and Vomiting (N/V). [facility] clindamycin 150 mg capsule 04-14 00:00: 00 04-22 04:59 :00 No [id number] 300mg Take 2 capsules by mouth 4 (four) times daily for 7 days. [facility] Zoloft Zoloft Yes Nikunj Torres 1 tablet [facility] Vital Signs Vital Name Observation Time Observation Value Comments S ourrichard Systolic blood pressure 2023-06-02 18:00:00 146 mm[Hg] [facility] Diastolic blood pressure 2023-06-02 18:00:00 98 mm[Hg] [facility] Heart rate 2023-06-02 18:00:00 89 /min Unive [facility] Respiratory rate 2023-06-02 18:00:00 13 /min [facility] Oxygen saturation in Arterial blood by Pulse oximetry 2023-06-02 18:00:00 96 /min [facility] Body temperature 2023-06-02 17:10:31 37.5 Marie [facility] Body height 2023-06-02 15:48:00 172.7 cm [facility] Body weight 2023-06-02 15:48:00 102.059 kg [facility] BMI 2023-06-02 15:48:00 34.21 kg/m2 [facility] Systolic blood pressure 2023-06-02 15:06:00 121 mm[Hg] [facility] Diastolic blood pressure 2023-06-02 15:06:00 80 mm[Hg] [facility] Heart rate 2023-06-02 15:06:00 104 /[facility] Oxygen saturation in Arterial blood by Pulse oximetry 2023-06-02 15:06:00 98 /min [facility] Body temperature 2023-06-02 14:38:00 37.39 Marie [facility] Respiratory rate 2023-06-02 14:38:00 18 /min [facility] Body height 2023-06-02 14:38:00 170.2 cm [facility] Body weight 2023-06-02 14:38:00 102.513 kg [facility] BMI 2023-06-02 14:38:00 35.40 kg/m2 [facility] Systolic blood pressure 2020-04-15 04:32:34 124 mm[Hg] [facility] Diastolic blood pressure 2020-04-15 04:32:34 83 mm[Hg] [facility] Heart rate 2020-04-15 04:32:34 91 /min Unive [facility] Body temperature 2020-04-15 04:32:34 36.94 Marie [facility] Respiratory rate 2020-04-15 04:32:34 16 /min [facility] Oxygen saturation in Arterial blood by Pulse oximetry 2020-04-15 04:32:34 99 /min [facility] Body weight 2020-04-15 01:33:00 104.327 kg [facility] Systolic blood pressure 2020-04-15 04:32:34 124 mm[Hg] [facility] Diastolic blood pressure 2020-04-15 04:32:34 83 mm[Hg] [facility] Heart rate 2020-04-15 04:32:34 91 /min [facility] Body temperature 2020-04-15 04:32:34 36.94 Marie [facility] Respiratory rate 2020-04-15 04:32:34 16 /min [facility] Oxygen saturation in Arterial blood by Pulse oximetry 2020-04-15 04:32:34 99 /min [facility] Body weight 2020-04-15 01:33:00 104.327 kg [facility] Procedures Procedure Date / Time Performed Performing Clinician Source CT CERVICAL SPINE WO CONTRAST 2023-06-02 16:38:37 De Mendenhall [facility] CT HEAD WO CONTRAST 2023-06-02 16:38:37 James Mendenhall [facility] LIPASE 2023-06-02 16:12:00 De Mendenhall [facility] TROPONIN I 2023-06-02 16:12:00 De Mendenhall [facility] COMP. METABOLIC PANEL ([id number]) 2023-06-02 16:12:00 De Mendenhall [facility] CBC WITH DIFF 2023-06-02 16:12:00 De Mendenhall [facility] N-TERMINAL PRO-BNP 2023-06-02 16:12:00 Nathanael Mendenhall [facility] LACTIC ACID WHOLE BLOOD 2023-06-02 16:12:00 De Mendenhall [facility] POCT SARS-COV-2 ANTIGEN (BINAX NOW) 2023-06-02 14:57:00 Iqra Manriquez [facility] POCT MOLECULAR STREP 2023-06-02 14:48:00 Unknown, Atte arsenio [facility] POCT MOLECULAR FLU 2023-06-02 14:43:00 Unknown, Attend ing [facility] ASSIGNMENT OF BENEFITS 2023-06-02 14:32:37 Docto r Unassigned, Basco [facility] COMP. METABOLIC PANEL (42016) 2020-04-15 04:04:00 Manav Quiroz [facility] CBC WITH DIFFERENTIAL 2020-04-15 04:04:00 Saman Quiroz [facility] ASSIGNMENT OF BENEFITS 2020-04-15 01:32:00 Docto r Unassigned, Basco [facility] NOTICE OF PRIVACY PRACTICES 2020-04-15 01:27:37 Doctor Unassigned, Basco [facility] CONSENT/REFUSAL FOR DIAGNOSIS AND TREATMENT 2020-04-15 01:27:24 Doctor Unassigned, Basco [facility] Encounters Start Date/Time End Date/Time Encounter Type Admission Type Attending [facility] Care Department Encounter ID Source 2023-06-02 10:44:00 2023-06-02 13:55:00 Emergency De Mendenhall F [facility] 1.840.114 350.1.13.10 4.2.7.2.686 [id number] [facility] 2023-06-02 10:44:00 2023-06-02 13:55:00 Emergency X DE MENDENHALL [facility] ERT [id number] [facility] 2023-06-02 09:40:00 2023-06-02 10:18:23 Outpatient R IQRA MANRIQUEZ [facility] [id number] [facility] 2023-06-02 09:40:00 2023-06-02 10:18:23 Urgent Care Iqra Manriquez Unknown, Attending [facility] 1..840.114 350.1.13.10 4.2.7.2.686 [id number] [facility] 2023-06-02 00:00:00 2023-06-02 00:00:00 Orders Only Doctor Unassigned, Basco [facility] 1.2114 350.1.13.10 4.2.7.2.686 [id number] [facility] 2021-02-06 14:50:00 2021-02-06 14:50:[address] [facility] [id number] [facility] 2021-01-16 14:55:00 2021-01-16 14:55:[address]FE CONNELL [facility] [id number] [facility] 2020-05-05 00:00:00 2020-05-05 00:00:00 Patient Secure Msg Doctor Unassigned, Basco [facility] 1.114 350.1.13.10 4.2.7.2.686 [id number] [facility] 2020-05-03 13:38:46 2020-05-03 13:58:46 Laboratory Only Lab, Count includes the [facility] 1.114 350.1.13.10 4.2.7.2.686 [id number] 2020-05-03 13:38:46 2020-05-03 13:58:46 [facility] 1.114 350.1.13.10 4.2.7.2.686 [id number] [facility] 2020-05-03 13:40:00 2020-05-03 13:40:[address] SIERRA PEREZ [facility] [id number] [facility] 2020-05-03 00:00:00 2020-05-03 00:00:00 Letter (Out) Doctor Unassigned, Basco [facility] 1.2114 350.1.13.10 4.2.7.2.686 [id number] 2020-05-03 00:00:00 2020-05-03 00:00:00 Letter (Out) Doctor Unassigned, Basco [facility] 1.2.840.114 350.1.13.10 4.2.7.2.686 [id number] [facility] 2020-04-14 20:34:56 2020-04-14 23:45:00 Emergency Manav Quiroz [facility] 1.2.840.114 350.1.13.10 4.2.7.2.686 [id number] 2020-04-14 20:34:56 2020-04-14 23:45:00 Emergency [facility] 1.2.840.114 350.1.13.10 4.2.7.2.686 [id number] [facility] 2020-04-14 20:27:00 2020-04-14 20:27:00 Emergency X MANAV QUIROZ [facility] ERT [id number] [facility] 2019-07-19 08:27:00 2019-07-19 08:27:00 [facility] [id number] [facility] 2019-06-29 09:52:00 2019-06-29 09:52:[address] [facility] [address] [facility] [id number] [facility] 2019-05-27 12:09:00 2019-05-27 12:09:00 [facility] [address] [facility] [id number] [facility] 2019-05-18 10:30:00 2019-05-18 10:30:00 [facility] [address] [facility] [id number] [facility] 2018-11-10 08:37:00 2018-11-10 08:37:00 [facility] [facility] [address] [facility] [id number] [facility] 2018-11-02 11:00:00 2018-11-02 11:00:00 Outpatient [facility] [id number] [facility] 2018-10-05 11:45:00 2018-10-05 11:45:00 Outpatient [facility] [id number] [facility] 2018-03-23 13:45:00 2018-03-23 13:45:00 Outpatient [facility] [id number] [facility] 2018-02-18 09:15:00 2018-02-18 09:15:00 Outpatient [facility] [id number] [facility] 2018-02-12 11:00:00 2018-02-12 11:00:00 Outpatient [facility] [id number] [facility] Results Test Description Test Time Test Comments Results Result Co mments Source [facility] [id number] 17:04:15* Test Item Value Reference Range Interpretation Comme nts TROPONIN I (test code = 2086945664) 0.002 ng/mL <=0.034 ANA (test code = ANA) Reference (Normal) Range (defined by the 99th percentile reference limit): <= 0.034 ng/mL Note: Cardiac troponin begins to rise 3-4 hours after the onset of ischemia. Repeat in 4-6 hours if the sample was drawn within 3-4 hours of the onset of the symptom and found normal. Diagnosis of myocardial injury is made with acute changes in cTn concentrations with at least one serial sample above the 99th percentile upper reference limit (URL), taken together with the patient's clinical presentation. Biotin has been reported to cause a negative bias, interpret results relative to patient's use of biotin. Lab Interpretation (test code = 47833-9) Normal [facility] [id number] 17:01:57* Test Item Value Reference Range Interpretation Comme nts NT-proBNP (test code = 28104-0) 57 pg/mL <=125 Lab Interpretation (test cod e = 65034-7) Normal [facility] METABOLIC PANEL (29012)2023-06-02 16:53:13* Test Item Value Reference Range Interpretation Comme nts NA (test code = 8976144462) 136 mmol/L 135-145 K (test code = 6467460423) 3.5 mmol/L 3.5-5.0 CL (test code = 8571501413) 102 mmol/L 98-108 CO2 TOTAL (test code = 8436880059) 22 mmol/L 23-31 L AGAP (test code = 2472533745) 12 2-16 BUN (test code = 7496245073) 10 mg/dL 7-23 GLUCOSE (test code = 6542915683) 109 mg/dL 70-110 CREATININE (test code = 9823610278) 0.99 mg/dL 0.60-1.25 TOTAL BILI (test code = 2807821622) 2.3 mg/dL 0.1-1.1 H CALCIUM (test code = 0976310341) 8.6 mg/dL 8.6-10.6 T PROTEIN (test code = 7050148555) 7.8 g/dL 6.3-8.2 ALBUMIN (test code = 5460456548) 4.2 g/dL 3.5-5.0 ALK PHOS (test code = 6403023166) 72 U/L 34-122 ALTv (test code = 1742-6) 31 U/L 5-50 AST(SGOT) (test code = 5592434316) 26 U/L 13-40 eGFR (test code = 3895941259) 83.3 mL/min/1.73m2 ANA (test code = ANA) Association of Glomerular Filtration Rate (GFR) and Staging of Kidney Disease* + --+ --+ ------+| GFR (mL/min/1.73 m2) ?| With Kidney Damage ?| ?Without Kidney Damage+ --------+ --------+ +| ?>90 ?| ?Stage one ?| ? Normal ?+ ---+ ---+ -------+| ?60-89 ?| ?Stage two ?| ? Decreased GFR ? + --+ --+ ------+| ?30-59 ?| ?Stage three ?| ? Stage three ? + --+ --+ ------+| ?15-29 ?| ?Stage four ? | ? Stage four ?+ ---+ ---+ -------+| ?<15 (or dialysis) ? ?| ?Stage five ? | ? Stage five ?+ ---+ ---+ -------+ *Each stage assumes the associated GFR level has been in effect for at least three months. ?Stages 1 to 5, with or without kidney disease, indicate chronic kidney disease. Notes: Determination of stages one and two (with eGFR >59mL/min/1.73 m2) requires estimation of kidney damage for at least three months as defined by structural or functional abnormalities of the kidney, manifested by either:Pathological abnormalities or Markers of kidney damage (including abnormalities in the composition of the blood or urine or abnormalities in imaging tests). Lab Interpretation (test code = 23654-8) [facility]normal [facility] 16:52:32* Test Item Value Reference Range Interpretation Comme [facility] LIPASE (test code = 6278516294) 70 U/L 0-220 Lab Interpretation (test cod e = 95065-0) Normal [facility] HospitalLamo[facility] Acid Whole [id number] 16:18:33* Test Item Value Reference Range Interpretation Comme [facility] LACTIC ACID (test code = 2587279919) 1.44 mmol/L 0.50-2.20 Lab Interpretation (test cod e = 08426-6) Normal [facility] SARS-COV-2 ANTIGEN (BINAX NOW)2023-06-02 14:58:00* Test Item Value Reference Range Interpretation Comme [facility] POCT SARS-COV-2 ANTIGEN (test code = 09483-3) Not Detected Not Detected On board controls acceptable with C Line (test code = 3574) Yes ANA (test code = ANA) accurate developme nt and interpretation of all internal controls Lab Interpretation (test code = 43677-0) Normal [facility] MOLECULAR [id number] 14:55:25* Test Item Value Reference Range Interpretation Comme nts POCT Molecular FluA (test co de = 62111-8) Negative Negative POCT Molecular FluB (test co de = 44127-7) Negative Negative Lab Interpretation (test cod e = 30116-5) Normal [facility] MO[facility]ULAR [id number] 14:55:25* Test Item Value Reference Range Interpretation Comme nts POCT Molecular Strep (test c ode = 27867-8) Negative Negative Lab Interpretation (test cod e = 81167-5) Normal [facility]. METABOLIC PANEL (71802)2020-04-15 04:36:00* Test Item Value Reference Range Interpretation Comme nts NA (test code = 3508098545) 141 mmol/L 135-145 K (test code = 2357023779) 4.2 mmol/L 3.5-5 CL (test code = 4471419814) 105 mmol/L 98-108 CO2 TOTAL (test code = 9170456210) 28 mmol/L 23-31 AGAP (test code = 2570513419) 2-16 BUN (test code = 6020792170) 12 mg/dL 7-23 GLUCOSE (test code = 0029606425) 104 mg/dL 70-110 CREATININE (test code = 1350729849) 0.99 mg/dL 0.6-1.25 TOTAL BILI (test code = 5078877988) 1.1 mg/dL 0.1-1.1 CALCIUM (test code = 3903912416) 9.7 mg/dL 8.6-10.6 T PROTEIN (test code = 1864313149) 8.6 g/dL 6.3-8.2 H ALBUMIN (test code = 5543174131) 5.0 g/dL 3.5-5 ALK PHOS (test code = 8194391660) 82 U/L 34-122 ALTv (test code = 1742-6) 67 U/L 5-50 H AST(SGOT) (test code = 2304754060) 34 U/L 13-40 eGFR Calculation (Non-) (test code = 1323145695) mL/min/1.73m2 eGFR Calculation () (test code = 2654772112) mL/min/1.73m2 ANA (test code = ANA) Association of Glomerular Filtration Rate (GFR) and Staging of Kidney Disease* + --+ --+ ------+| GFR (mL/min/1.73 m2) ?| With Kidney Damage ?| ?Without Kidney Damage+ --------+ --------+ +| ?>90 ?| ?Stage one ?| ? Normal ?+ ---+ ---+ -------+| ?60-89 ?| ?Stage two ?| ? Decreased GFR ? + --+ --+ ------+| ?30-59 ?| ?Stage three ?| ? Stage three ? + --+ --+ ------+| ?15-29 ?| ?Stage four ? | ? Stage four ?+ ---+ ---+ -------+| ?<15 (or dialysis) ? ?| ?Stage five ? | ? Stage five ?+ ---+ ---+ -------+ *Each stage assumes the associated GFR level has been in effect for at least three months. ?Stages 1 to 5, with or without kidney disease, indicate chronic kidney disease. Notes: Determination of stages one and two (with eGFR >59mL/min/1.73 m2) requires estimation of kidney damage for at least three months as defined by structural or functional abnormalities of the kidney, manifested by either:Pathological abnormalities or Markers of kidney damage (including abnormalities in the composition of the blood or urine or abnormalities in imaging tests). Lab Interpretation (test code = 28865-0) Abnormal [facility] WITH [id number] 04:19:00* Test Item Value Reference Range Interpretation Comme nts WBC (test code = 6690-2) See_Comment [[employer]] The system which generated this result transmitted reference range: 4.20 - 10.70 10*3/?L. The reference range was not used to interpret this result as normal/abnormal. RBC (test code = 789-8) See_Comment [Automated [employer]] The system which generated this result transmitted reference range: 4.26 - 5.52 10*6/?L. The reference range was not used to interpret this result as normal/abnormal. HGB (test code = 718-7) 16.4 g/dL 12.2-16.4 HCT (test code = 4544-3) 47.7 % 38.4-49.3 MCV (test code = 787-2) 89.8 fL 81.7-95.6 MCH (test code = 785-6) 30.9 pg 26.1-32.7 MCHC (test code = 786-4) 34.4 g/dL 31.2-35 RDW-SD (test code = 14892-0) 40.9 fL 38.5-51.6 RDW-CV (test code = 788-0) 12.4 % 12.1-15.4 PLT (test code = 777-3) See_Comment [[employer]] The system which generated this result transmitted reference range: 150 - 328 10*3/?L. The reference range was not used to interpret this result as normal/abnormal. MPV (test code = 60829-2) 10.3 fL 9.8-13 NRBC/100 WBC (test code = 3498903609) See_Comment [Automated [employer] ssage] The system which generated this result transmitted reference range: 0.0 - 10.0 /100 WBCs. The reference range was not used to interpret this result as normal/abnormal. NRBC x10^3 (test code = 6439337395) <0.01 See_Comment [[employer]] The system which generated this result transmitted reference range: 10*3/?L. The reference range was not used to interpret this result as normal/abnormal. GRAN MAT (NEUT) % (test code = 770-8) 86.4 % IMM GRAN % (test code = 6807316879) 0.10 % LYMPH % (test code = 736-9) 7.8 % MONO % (test code = 5905-5) 3.4 % EOS % (test code = 713-8) 2.2 % BASO % (test code = 706-2) 0.1 % GRAN MAT x10^3(ANC) (test code = 0076441163) 6.93 10*3/uL 1.99-6.95 IMM GRAN x10^3 (test code = 2011764024) <0.03 0-0.06 LYMPH x10^3 (test code = 731-0) 0.63 10*3/uL 1.09-3.23 L MONO x10^3 (test code = 742-7) 0.27 10*3/uL 0.36-1.02 L EOS x10^3 (test code = 711-2) 0.18 10*3/uL 0.06-0.53 BASO x10^3 (test code = 704-7) <0.03 0.01-0.09 Lab Interpretation (test code = 39970-3) Abnormal [facility]"
[2024-10-16] MEDS ORDERED: ASPIRIN 81 MG CHEWABLE TABLET ONE (13:23)
[2024-10-16] MEDS ORDERED: ONDANSETRON 4 MG/2 ML VIAL ONE (13:26)
[2024-10-16] MEDS ORDERED: MORPHINE 4 MG/ML SYR ONE (13:26)
[2024-10-16 13:33] LABS: Absolute Monocytes 0.3 K/uL (0.1-1.3); Absolute Neutrophil 8.2 K/uL (1.8-8.0); Basophils % 0.3 % (0-1.3); Eosinophils % 0.5 % (0-4.4); Hematocrit 46.5 % (39.6-49.0); Hemoglobin 15.8 g/dL (13.6-17.9); Lymphocytes % 10.5 % (15.3-44.8); MCH 30.4 pg (27.0-35.0); MCHC 33.9 g/dL (32.0-36.0); MCV 89.6 fL (80-100); MPV 7.9 fL (7.6-11.3); Monocytes % 3.6 % (3.3-12.3); Neutrophils % 85.1 % (41.7-73.7); Nucleated Red Blood Cells % 0.1 % (0-0); Platelets 291 thou/uL (152-406); RBC Red Blood Cell Count 5.19 M/uL (4.33-5.43); Red Cell Distribution Width 13.2 % (12.1-15.2)
[2024-10-16 13:36] LABS: PT Prothrombin Time 12.2 SECONDS (9.4-12.5); Protime INR 1.09
[2024-10-16 13:52] LABS: ALT/SGPT 60 U/L (16-61); AST/SGOT 30 U/L (15-37); Albumin/Globulin Ratio 1.1 (1.1-1.8); Alkaline Phosphatase 72 U/L (45-117); Anion Gap 9.6 mEq/L (5.0-15.0); BUN Blood Urea Nitrogen 11 mg/dL (7-18); Bicarbonate 23 mEq/L (21-32); Bilirubin Direct 0.2 mg/dL (0-0.2); Bilirubin Indirect, Calculated 0.8 mg/dL (0.2-0.8); Globulin 3.8 g/dL (2.3-3.5); Glomerular Filtration Rate 90 ml/min (=/>90); Glucose Level 107 mg/dL (74-106); Lipase 54 U/L (13-75); Magnesium 2.1 mg/dL (1.6-2.4); NT PRO-BNP 65 pg/mL (<125); Potassium 3.6 mEq/L (3.5-5.1); Protein, Total 7.8 g/dL (6.4-8.2); Sodium Level 137 mEq/L (136-145)
[2024-10-16] MEDS ORDERED: HYDROMORPHONE HCL 1 MG/ML INJ ONE (13:57)
[2024-10-16 14:21] LABS: Troponin High Sensitivity < 3.0 pg/mL (<58.9)
--- NOTE | 2024-10-16 14:44 | RAD REPORT ---
EXAMINATION: US LOWER EXTREMITY VENOUS DOPPLER BILATERAL CLINICAL INDICATION: Male, 44 years old.PAIN TECHNIQUE: Complete bilateral duplex sonography of the lower extremity veins was performed. The exami nation included compression for vein patency, color Doppler imaging and flow augmentation in response to distal compression of the distal external iliac, common femoral, femoral, popliteal, cassandra bebe, tibial and great saphenous veins. [id number]. COMPARISON: No prior exams FINDINGS: Duplex sonography imaging demonstrates all deep examined to be fully compressible with spontaneous, p hasic and augmented flow bilaterally. IMPRESSION: No evidence of deep venous thrombosis seen in either lower extremity.
[2024-10-16 15:21] LABS: Differential Total Cells Count 100
[2024-10-16 15:22] LABS: Lymphocytes 12 % (15-42); Monocytes 5 % (0-10); Platelet Estimate INCR; Segmented Neutrophils 83 % (40-80)
[2024-10-16 15:23] LABS: Blood Morphology Comment NOT SEEN (NOT SEEN)
--- NOTE | 2024-10-16 15:40 | RAD REPORT ---
EXAM: Chest Single View HISTORY: CHEST PAIN COMPARISON: None. FINDINGS: LUNGS/PLEURA: The lungs are clear. No pleural effusions or pneumothorax. No pulmonary edema. MEDIASTINUM: The mediastinal silhouette is within normal limits. CARDIAC: Within normal limits. UPPER ABDOMEN: No significant abnormality. BONES: No acute fracture. LINES/TUBES/OTHER: Vagal nerve stimulator overlies the right chest. IMPRESSION: No evidence of acute cardiopulmonary disease.
--- NOTE | 2024-10-16 16:00 | RAD REPORT ---
EXAMINATION: CTA CHEST PE CLINICAL INDICATION: Male, 44 years old. Chest pain;Dyspnea TECHNIQUE: This examination was performed according to an angiographic protocol with 3D post-processi ng. This involves 3D reconstructions, MIPs, volume rendered images and/or shaded surface rendering. One or more of the following dose reduction techniques were used: Automated exposure control, adjustm ent of the mA and/or kV according to patient size, and/or iterative reconstruction. Unless otherwise specified, incidental findings do not require dedicated imaging follow-up. [id number]. COMPARISON: Same-day chest x-ray FINDINGS: LOWER NECK: Visualized thyroid gland and soft tissues are normal. Right chest wall and are similar. LUNGS AND AIRWAYS: Airways are clear. No evidence of airspace or interstitial process. No nodules. De pendent atelectasis. Mild motion artifact. PLEURA: No pleural effusion. No pneumothorax. Hemidiaphragms are normally positioned. MEDIASTINUM AND LYMPH NODES: No mediastinal mass or fluid collection. Normal size mediastinal, hilar, and axillary lymph nodes. THORACIC AORTA: Normal caliber and configuration. PULMONARY ARTERIES: No evidence of pulmonary embolism. Note that the subsegmental pulmonary arteries are not well assessed. HEART: Normal heart size. No pericardial effusion. No coronary calcifications. OSSEOUS STRUCTURES AND CHEST WALL: Intact. UPPER ABDOMEN: Hepatic steatosis. IMPRESSION: No evidence of pulmonary emboli to the segmental level. Probable mild dependent atelectasis and low l tiffanie volumes. No acute process otherwise identified..
--- NOTE | 2024-10-16 16:05 | RAD REPORT ---
EXAM: Soft Tissue Neck W/Contr INDICATION: Pain and swelling TECHNIQUE: Helical CT examination of the neck with IV contrast. Sagittal and coronal reformations wer e generated. This exam was performed according to our departmental dose-optimization program, which includes automated exposure control, adjustment of the mA and/or kV according to patient size and/or use of iterative reconstruction technique. COMPARISON: None. 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 No focal mass identified. Lymph Nodes: No pathologic appearing cervical lymph nodes. Parotid Glands: Normal Submandibular Glands: Normal Thyroid Gland: Normal Included Intracranial Structures: Normal Included Orbits: Normal Paranasal Sinuses: Predominantly clear Tympanomastoid Cavities: Normal Vascular Structures: Normal Osseous Structures: No acute osseous abnormality. Included Lung Apices: Normal Nerve stimulator terminates in the region of the right tongue and submandibular region. IMPRESSION: No acute findings within the neck. No fluid collection or mass identified.
[2024-10-16] MEDS ORDERED: LEVALBUTEROL 1.25 MG/3 ML NEB ONE (16:26)
[2024-10-16] MEDS ORDERED: IPRATROPIUM BROM 0.5MG/2.5ML ONE (16:26)
[2024-10-16] MEDS ORDERED: DIAZEPAM 5 MG TABLET ONE (16:27)
[2024-10-16] MEDS ORDERED: KETOROLAC 30 MG/ML INJ ONE (16:27)
--- NOTE | 2024-10-16 16:30 | ER ---
Nurse's Notes [facility] Name: Thong Koroma Age: 44 yrs Sex: Male : 1980 Arrival Date: 10/16/2024 Time: 13:12 Bed 14 Private MD: Diagnosis: Chest pain on breathing;Pleurisy Presentation: 10/16 13:20 Chief complaint: Patient states: Chest pain and SOB started at 11am this morning. Pt ld1 reports having implant to left chest with Dr. Wilks last Friday. Coronavirus screen: At this time, the client does not indicate any symptoms associated with coronavirus-19. Ebola Screen: No symptoms or risks identified at this time. Risk Assessment: Do you want to hurt yourself or someone else? Patient reports no desire to harm self or others. Onset of symptoms was October 16, 2024. 13:20 Method Of Arrival: Ambulatory ld1 13:20 Acuity: REG 2 ld1 13:22 Initial Sepsis Screen: Does the patient meet any 2 criteria? No. Patient's initial ld1 sepsis screen is negative. Does the patient have a suspected source of infection? No. Patient's initial sepsis screen is negative. Triage Assessment: 13:21 General: Appears in no apparent distress. uncomfortable, Behavior is calm, cooperative, ld1 appropriate for age. Pain: Complains of pain in chest Pain does not radiate. Pain currently is 10 out of 10 on a pain scale. Quality of pain is described as throbbing, Pain began 1 hour ago. Is continuous. EENT: No signs and/or symptoms were reported regarding the EENT system. Neuro: Level of Consciousness is awake, alert, obeys commands, Oriented to person, place, time, situation. Cardiovascular: Capillary refill < 3 seconds Patient's skin is warm and dry. Rhythm is sinus tachycardia. Respiratory: Airway is patent Respiratory effort is even, unlabored. GI: Abdomen is round non-distended. : No signs and/or symptoms were reported regarding the genitourinary system. Derm: No signs and/or symptoms reported regarding the dermatologic system. Musculoskeletal: No signs and/or symptoms reported regarding the musculoskeletal system. Historical: - Allergies: 13:21 No Known Allergies; ld1 - PMHx: 13:21 Hypertension; Sleep Apnea; ld1 - PSHx: 13:21 Chest implant; ld1 - Immunization history:: Adult Immunizations up to date. - Infectious Disease History:: Denies. - Social history:: Smoking status: Patient denies any tobacco usage or history of. Screenin:00 [facility] ED Fall Risk Assessment (Adult) History of falling in the last 3 months, tm6 including since admission No falls in past 3 months (0 pts) Confusion or Disorientation No (0 pts) Intoxicated or Sedated No (0 pts) Impaired Gait No (0 pts) Mobility Assist Device Used No (0 pt) Altered Elimination No (0 pt) Score/Fall Risk Level 0 - 2 = Low Risk Oriented to surroundings, Maintained a safe environment, Educated pt \T\ family on fall prevention, incl call for assistance when getting out of bed. Abuse screen: Denies threats or abuse. Denies injuries from another. Nutritional screening: No deficits noted. Tuberculosis screening: No symptoms or risk factors identified. Assessment: 13:35 Reassessment: Pt c/o chest pain- notified ERP. Dr. Tillman gave verbal order for 4mg ld1 Morphine IVP and 4mg Zofran IVP. 14:00 General: Appears in no apparent distress. Behavior is calm, cooperative. Pain: tm6 Complains of pain in chest Pain currently is 10 out of 10 on a pain scale. Pain: Pain does not radiate. Neuro: Level of Consciousness is awake, alert, obeys commands, Oriented to person, place, time, situation. Cardiovascular: Reports chest pain, Patient's skin is warm and dry. Respiratory: Airway is patent Respiratory effort is even, unlabored, Respiratory pattern is regular, symmetrical. GI: No signs and/or symptoms were reported involving the gastrointestinal system. Abdomen is flat, non-distended. : No signs and/or symptoms were reported regarding the genitourinary system. EENT: No signs and/or symptoms were reported regarding the EENT system. Derm: No signs and/or symptoms reported regarding the dermatologic system. Musculoskeletal: No signs and/or symptoms reported regarding the musculoskeletal system. Vital Signs: 13:20 Weight 104.33 kg; Height 5 ft. 8 in. ; Pain 10/10; ld1 13:23 BP 169 / 109; Pulse 111; Resp 19; Pulse Ox 94% on R/A; ld1 13:35 BP 169 / 109; Pulse 104; Resp 20; Pulse Ox 100% on R/A; ld1 15:10 BP 132 / 97; Pulse 85; Pulse Ox 94% on R/A; MAP 109 mmHg; Pain 9/10; tm6 16:22 BP 153 / 105; Pulse 96; Pulse Ox 98% on R/A; MAP 118 mmHg; Pain 10/10; tm6 13:20 Body Mass Index 34.97 (104.33 kg, 172.72 cm) ld1 13:20 Pain Scale: Adult ld1 15:10 Pain Scale: Adult tm6 16:22 Pain Scale: Adult tm6 ED Course: 13:14 Patient arrived in ED. im 13:20 Kash Tillman MD is Attending Physician. maria alejandra 13:21 Triage completed. ld1 13:21 Arm band placed on right wrist. EKG completed in triage. Results shown to MD. ld1 13:27 Patient has correct armband on for positive identification. Placed in gown. Bed in low hb position. Call light in reach. Side rails up X 1. Provided Education on: tests, result times, use of call light . Client placed on continuous cardiac and pulse oximetry monitoring. NIBP monitoring applied. director of supply chain on. Pulse ox on. NIBP on. 13:27 Initial lab(s) drawn, by me, sent to lab. Inserted saline lock: 20 gauge in right em1 wrist, using aseptic technique. Blood collected. Flushed with 10 mL NS. 13:28 Basic Metabolic Panel Sent. em1 13:28 CBC with Diff Sent. em1 13:28 LFT's Sent. em1 13:28 Magnesium Sent. em1 13:28 NT PRO-BNP Sent. em1 13:28 PT-INR Sent. em1 13:28 Troponin HS Sent. em1 14:00 No provider procedures requiring assistance completed. Patient maintains SpO2 tm6 saturation greater than 95% on room air. 14:38 US Extremity Venous W Compression Hema In Process Unspecified. EDMS 14:57 Anup Dorado, RN is Primary Nurse. tm6 14:57 Inserted saline lock: 20 gauge in right antecubital area, using aseptic technique. tm6 Flushed with 10 mL NS. 15:33 XRAY Chest (1 view) In Process Unspecified. EDMS 15:51 CT Chest For PE Angio In Process Unspecified. EDMS 15:52 Soft Tissue Neck W/Contr CT In Process Unspecified. EDMS 16:29 Romie Gray is Hospitalizing Provider. maria alejandra 18:09 Patient admitted, IV remains in place. tm6 Administered Medications: 13:28 Drug: Aspirin PO Chewable Tablet 81 mg PO once Route: PO; ld1 14:05 Follow up: Response: No adverse reaction ld1 13:34 Drug: Ondansetron IVP 4 mg IVP once; over 2 minutes Route: IVP; Site: right hand; ld1 14:05 Follow up: Response: No adverse reaction ld1 13:34 Drug: morphine IVP or IV 4 mg IVP once over 4 mins Route: IVP; Infused Over: 4 mins; ld1 Site: right wrist; 14:05 Follow up: Response: No adverse reaction; Pain is unchanged, physician notified ld1 14:04 Drug: HYDROmorphone IVP 1 mg IVP once Route: IVP; Site: right hand; ld1 15:54 Follow up: Response: No adverse reaction; Pain is unchanged, physician notified tm6 16:33 Drug: Levalbuterol Inhalation 2.5 mg Inhalation once Route: Inhalation; tm6 18:10 Follow up: Response: No adverse reaction tm6 16:33 Drug: Ipratropium Inhalation Aerosol 0.5 mg Inhalation once Route: Inhalation; tm6 18:10 Follow up: Response: No adverse reaction tm6 16:33 Drug: Diazepam PO 10 mg PO once Route: PO; tm6 18:09 Follow up: Response: No adverse reaction; Pain is decreased tm6 16:33 Drug: Ketorolac IVP 30 mg IVP once Route: IVP; Site: right antecubital; tm6 18:09 Follow up: Response: No adverse reaction; Pain is decreased tm6 Medication: 14:00 VIS not applicable for this client. tm6 Outcome: 16:30 Decision to Hospitalize by Provider. maria alejandra 18:09 Admitted to Med/surg accompanied by tech, via wheelchair, with chart, tm6 18:09 Condition: stable 18:09 Instructed on the need for admit, 18:10 Patient left the ED. tm6 Signatures: Dispatcher [employer] EDMS Kash Tillman MD MD cha Martinez, Eric em1 Naomie Gan RN RN Nighat Cox RN RN ld1 Sera Soto Tawney, RN RN tm6
--- NOTE | 2024-10-16 16:30 | EDPHYS ---
Physician Documentation [facility] Name: Thong Koroma Age: 44 yrs Sex: Male : 1980 Arrival Date: 10/16/2024 Time: 13:12 Bed 14 Private MD: ED Physician Kash Tillman HPI: 10/16 16:24 This 44 yrs old Male presents to ER via Ambulatory with complaints of Chest maria alejandra Pain, Shortness Of Breath. 16:24 The patient or guardian reports chest pain that is located primarily in the anterior maria alejandra chest wall, right. Onset: 5 day(s) ago. The pain does not radiate. Associated signs and symptoms: Pertinent positives: shortness of breath. The chest pain is described as sharp. Duration: The patient or guardian reports multiple episodes, that are intermittent. Modifying factors: The symptoms are alleviated by remaining still, the symptoms are aggravated by deep breath. Severity of pain: At its worst the pain was moderate in the emergency department the pain is unchanged. The patient has not experienced similar symptoms in the past. Historical: - Allergies: 13:21 No Known Allergies; ld1 - PMHx: 13:21 Hypertension; Sleep Apnea; ld1 - PSHx: 13:21 Chest implant; ld1 - Immunization history:: Adult Immunizations up to date. - Infectious Disease History:: Denies. - Social history:: Smoking status: Patient denies any tobacco usage or history of. ROS: 16:25 Constitutional: Negative for fever, chills, and weight loss, Eyes: Negative for injury, maria alejandra pain, redness, and discharge, ENT: Negative for injury, pain, and discharge, Neck: Negative for injury, pain, and swelling, Abdomen/GI: Negative for abdominal pain, nausea, vomiting, diarrhea, and constipation, Back: Negative for injury and pain, : Negative for injury, bleeding, discharge, and swelling, 16:25 MS/Extremity: Negative for injury and deformity, Skin: Negative for injury, rash, and discoloration, Neuro: Negative for headache, weakness, numbness, tingling, and seizure, Psych: Negative for depression, anxiety, suicide ideation, homicidal ideation, and hallucinations, Allergy/Immunology: Negative for hives, rash, and allergies, Endocrine: Negative for neck swelling, polydipsia, polyuria, polyphagia, and marked weight changes, Hematologic/Lymphatic: Negative for swollen nodes, abnormal bleeding, and unusual bruising, 16:25 Cardiovascular: Positive for chest pain, 16:25 Respiratory: Positive for dyspnea on exertion, pleurisy, shortness of breath, Exam: 16:25 Constitutional: This is a well developed, well nourished patient who is awake, alert, maria alejandra and in no acute distress. Head/Face: Normocephalic, atraumatic. Eyes: Pupils equal round and reactive to light, extra-ocular motions intact. Lids and lashes normal. Conjunctiva and sclera are non-icteric and not injected. Cornea within normal limits. Periorbital areas with no swelling, redness, or edema. ENT: Nares patent. No nasal discharge, no septal abnormalities noted. Tympanic membranes are normal and external auditory canals are clear. Oropharynx with no redness, swelling, or masses, exudates, or evidence of obstruction, uvula midline. Mucous membranes moist. Neck: Trachea midline, no thyromegaly or masses palpated, and no cervical lymphadenopathy. Supple, full range of motion without nuchal rigidity, or vertebral point tenderness. No Meningismus. Chest/axilla: Normal chest wall appearance and motion. Nontender with no deformity. No lesions are appreciated. Cardiovascular: Regular rate and rhythm with a normal S1 and S2. No gallops, murmurs, or rubs. Normal PMI, no JVD. No pulse deficits. Respiratory: Lungs have equal breath sounds bilaterally, clear to auscultation and percussion. No rales, rhonchi or wheezes noted. No increased work of breathing, no retractions or nasal flaring. Abdomen/GI: Soft, non-tender, with normal bowel sounds. No distension or tympany. No guarding or rebound. No evidence of tenderness throughout. Back: No spinal tenderness. No costovertebral tenderness. Full range of motion. Skin: Warm, dry with normal turgor. Normal color with no rashes, no lesions, and no evidence of cellulitis. MS/ Extremity: Pulses equal, no cyanosis. Neurovascular intact. Full, normal range of motion., bilateral aka Neuro: Awake and alert, GCS 15, oriented to person, place, time, and situation. Cranial nerves II-XII grossly intact. Motor strength 5/5 in all extremities. Sensory grossly intact. Cerebellar exam normal. Normal gait. Psych: Awake, alert, with orientation to person, place and time. Behavior, mood, and affect are within normal limits. 16:25 ECG was reviewed by the Attending Physician. Vital Signs: 13:20 Weight 104.33 kg; Height 5 ft. 8 in. ; Pain 10/10; ld1 13:23 BP 169 / 109; Pulse 111; Resp 19; Pulse Ox 94% on R/A; ld1 13:35 BP 169 / 109; Pulse 104; Resp 20; Pulse Ox 100% on R/A; ld1 15:10 BP 132 / 97; Pulse 85; Pulse Ox 94% on R/A; MAP 109 mmHg; Pain 9/10; tm6 16:22 BP 153 / 105; Pulse 96; Pulse Ox 98% on R/A; MAP 118 mmHg; Pain 10/10; tm6 13:20 Body Mass Index 34.97 (104.33 kg, 172.72 cm) ld1 13:20 Pain Scale: Adult ld1 15:10 Pain Scale: Adult tm6 16:22 Pain Scale: Adult tm6 MDM: 13:20 Medical Screening Exam initiated maria alejandra 16:26 Differential diagnosis: abnormal EKG, acute myocardial infarction, acute pericarditis, maria alejandra anxiety, chest wall pain, costochondritis, esophagitis, hiatal hernia, myocarditis, pancreatitis, peptic ulcer disease, pericarditis, pleurisy, pneumonia, pulmonary embolus, stable angina, thoracic aortic disection, unstable angina. HEART Score: History: Slightly Suspicious (0), ECG: Normal (0), Age: < or = 45 years (0), Risk Factors: 1 or 2 risk factors (1), [Hypertension] [Obesity] Troponin: < or = 1 x Normal Limit (0). The patient was given aspirin in the Emergency Department. Data reviewed: vital signs, nurses notes, lab test result(s), EKG, radiologic studies, CT scan, plain films. Consideration of Admission/Observation Patient was admitted/placed on observation. Escalation of care including admission/observation considered. I considered the following discharge prescriptions or medication management in the emergency department Medications were administered in the Emergency Department. See MAR. Independent interpretation of the following test(s) in the Emergency Department EKG: See my EKG interpretation above. Test considered but Not performed: Ultrasound no 2 d echo. Care significantly affected by the following chronic conditions: Hypertension, Obesity. 10/16 13:21 Order name: Basic Metabolic Panel; Complete Time: 15:38 [facility] 10/16 13:21 Order name: CBC with Diff; Complete Time: 15:38 [facility] 10/16 13:21 Order name: LFT's; Complete Time: 15:38 [facility] 10/16 13:21 Order name: Magnesium; Complete Time: 15:38 [facility] 10/16 13:21 Order name: NT PRO-BNP; Complete Time: 15:38 [facility] 10/16 13:21 Order name: PT-INR; Complete Time: 15:38 [facility] 10/16 13:21 Order name: Troponin HS; Complete Time: 15:38 [facility] 10/16 13:21 Order name: Lipase; Complete Time: 15:38 [facility] 10/16 13:21 Order name: Urinalysis w/ reflexes [facility] 10/16 13:37 Order name: Manual Differential; Complete Time: 15:38 EDMS 10/16 13:21 Order name: XRAY Chest (1 view); Complete Time: 16:13 [facility] 10/16 13:21 Order name: CT Chest For PE Angio; Complete Time: 16:13 [facility] 10/16 13:21 Order name: US Extremity Venous W Compression Hema; Complete Time: 15:38 [facility] 10/16 14:05 Order name: Soft Tissue Neck W/Contr CT; Complete Time: 16:13 [facility] 10/16 16:14 Order name: INCENTIVE SPIROMETRY [facility] 10/16 13:21 Order name: EKG; Complete Time: 13:22 [facility] 10/16 13:21 Order name: Cardiac monitoring; Complete Time: 13:23 [facility] 10/16 13:21 Order name: EKG - Nurse/Tech; Complete Time: 13:23 [facility] 10/16 13:21 Order name: IV Saline Lock; Complete Time: 13:23 [facility] 10/16 13:21 Order name: Labs collected and sent; Complete Time: 13:23 [facility] 10/16 13:21 Order name: O2 Per Protocol; Complete Time: 13:23 [facility] 10/16 13:21 Order name: O2 Sat Monitoring; Complete Time: 13:23 [facility] EC:25 Rate is 106 beats/min. Rhythm is regular. QRS [place] is Normal. [place] interval is normal. maria alejandra QRS interval is normal. QT interval is normal. No Q waves. T waves are Normal. No ST changes noted. Clinical impression: Sinus tachycardia. Interpreted by me. Reviewed by me. Administered Medications: 13:28 Drug: Aspirin PO Chewable Tablet 81 mg PO once Route: PO; ld1 14:05 Follow up: Response: No adverse reaction ld1 13:34 Drug: Ondansetron IVP 4 mg IVP once; over 2 minutes Route: IVP; Site: right hand; ld1 14:05 Follow up: Response: No adverse reaction ld1 13:34 Drug: morphine IVP or IV 4 mg IVP once over 4 mins Route: IVP; Infused Over: 4 mins; ld1 Site: right wrist; 14:05 Follow up: Response: No adverse reaction; Pain is unchanged, physician notified ld1 14:04 Drug: HYDROmorphone IVP 1 mg IVP once Route: IVP; Site: right hand; ld1 15:54 Follow up: Response: No adverse reaction; Pain is unchanged, physician notified tm6 16:33 Drug: Levalbuterol Inhalation 2.5 mg Inhalation once Route: Inhalation; tm6 18:10 Follow up: Response: No adverse reaction tm6 16:33 Drug: Ipratropium Inhalation Aerosol 0.5 mg Inhalation once Route: Inhalation; tm6 18:10 Follow up: Response: No adverse reaction tm6 16:33 Drug: Diazepam PO 10 mg PO once Route: PO; tm6 18:09 Follow up: Response: No adverse reaction; Pain is decreased tm6 16:33 Drug: Ketorolac IVP 30 mg IVP once Route: IVP; Site: right antecubital; tm6 18:09 Follow up: Response: No adverse reaction; Pain is decreased tm6 Disposition Summary: 10/16/24 16:30 Hospitalization Ordered Notes: Hospitalization Status: Observation maria alejandra Provider: Romie Gray cha Location: Telemetry/MedSurg (observation) maria alejandra Condition: Stable maria alejandra Problem: new maria alejandra Symptoms: have improved maria alejandra Bed/Room Type: Standard maria alejandra Room Assignment: 210(10/16/24 17:18) eb Diagnosis - Chest pain on breathing maria alejandra - Pleurisy maria alejandra Forms: - Medication Reconciliation Form maria alejandra - SBAR form maria alejandra - Leadership Thank You Letter maria alejandra Signatures: Dispatcher [employer] Kash Vizcaino MD MD cha Botello, Elizabeth eb Sims, Lauren, RN RN ld1 Ave, Tawney, RN RN tm6 Corrections: (The following items were deleted from the chart) 13: Chest For PE Angio+CT.RAD.BRZ ordered. EDMS EDMS 13: Extrem Venous W Compression Hema+US.RAD.BRZ ordered. EDMS EDMS 17: 16:30 maria alejandra eb
--- NOTE | 2024-10-16 17:25 | P.HP ---
Certification for Inpatient Patient admitted to: Observation With expected LOS: <2 Midnights Patient will require the following post-hospital care: None Practitioner: I am a practitioner with admitting privileges, knowledge of patient current condition, hospital course, and medical plan of care. Services: Services provided to patient in accordance with Admission requirements found in Title 42 Section 412.3 of the Code of Federal Regulations Patient History Date of Service: 10/16/24 Reason for admission: Chest pain History of Present Illness: 44-year-old male with history of hypertension, sleep apnea presents the emergency department with chief complaint of right-sided pleuritic chest pain which has been going on since he woke up this morning. Of note he had the inspire procedure performed on 10/08 here with local ENT physician Dr. Wilks, he had been doing well postoperatively until this morning when he began to experience this pleuritic chest pain. He was evaluated in the emergency room his labs were significant for initial high sensitive troponin of less than 3, otherwise unremarkable CTA of the chest was performed which was negative for PE or other acute processes, likely mild dependent atelectasis and low lung volumes. CT soft tissue of the neck was also performed was negative for acute findings. Patient still with persistent pleuritic right-sided chest pain described as severe, worse with inspiration. Pain is unable to be controlled in the ED, will admit under observation for chest pain Allergies No Known Allergies Allergy (Verified 10/08/24 10:24) Home Medications: Doxepin HCl 50 mg PO BEDTIME 08/24/24 Tizanidine [Zanaflex] 4 mg PO BEDTIME 08/24/24 - Past Medical/Surgical History -: Sleep apnea -: Hypertension -: UUUP -: Spinal fusion -: Inspire Psychosocial/ Personal History: Lives at home with family - Social History Place of Residence: Home Review of Systems 10-point ROS is otherwise unremarkable Respiratory: Pleuritic Pain Cardiovascular: Chest Pain Physical Examination - Physical Exam General: Alert, In no apparent distress, Oriented x3 HEENT: Atraumatic, PERRLA, Mucous membr. moist/pink Neck: Supple, 2+ carotid pulse no bruit, No LAD Respiratory: Clear to auscultation bilaterally, Normal air movement Cardiovascular: Regular rate/rhythm, Normal S1 S2 Gastrointestinal: Normal bowel sounds, No tenderness Musculoskeletal: No tenderness Integumentary: No rashes Neurological: Normal speech, Normal strength at 5/5 x4 extr, Normal affect - Studies Laboratory Data (last 24 hrs) 10/16/24 10/16/24 10/16/24 13:24 13:24 13:24 WBC 9.60 Hgb 15.8 Hct 46.5 Plt Count 291 PT 12.2 INR 1.09 Sodium 137 Potassium 3.6 BUN 11 Creatinine 1.06 Glucose 107 H Magnesium 2.1 Total Bilirubin 1.0 AST 30 ALT 60 Alkaline Phosphatase 72 Lipase 54 Assessment and Plan - Plan Assessment: Pleuritic chest pain S/P inspire device placement 10/08 Sleep apnea hypertension Plan: Pleuritic chest pain S/P inspire device placement 10/08 Trend troponin and monitor on telemetry to be safe CTA negative for PE or other acute processes ENT to see patient As needed pain medications, incentive spirometry Sleep apnea hypertension Continue home medications when verified DVT PPX: Lovenox Code status:full Discharge Plan: Home Plan to discharge in: 24 Hours - Advance Directives Does patient have a Living Will: No Does patient have a Durable POA for Healthcare: No - Code Status/Comfort Care Code Status Assessed: Yes (Full code) Critical Care: No Time Spent Managing Pts Care (In Minutes): 55
[2024-10-16] MEDS ORDERED: ONDANSETRON 4 MG/2 ML VIAL IV PRN (17:46)
[2024-10-16] MEDS ORDERED: KETOROLAC 30 MG/ML INJ IV PRN (17:46)
[2024-10-16] MEDS ORDERED: ACETAMINOPHEN 325 MG TABLET PO PRN (17:46)
[2024-10-16 18:03] VITALS: BMI 34.9
[2024-10-16] MEDS: HYDROCODONE/APAP 7.5/325 MG TAB PO PRN (19:45)
[2024-10-16 19:50] VITALS: O2SAT 98
[2024-10-16] MEDS: KETOROLAC 30 MG/ML INJ IV PRN (21:24)
[2024-10-16] MEDS: ZOLPIDEM TARTRATE 10 MG TABLET PO PRN (21:31)
[2024-10-17 05:22] LABS: Absolute Lymphocytes (CBC) 1.2 K/uL (0.7-4.9); Absolute Monocytes 0.7 K/uL (0.1-1.3); Absolute Neutrophil 7.6 K/uL (1.8-8.0); Basophils % 0.2 % (0-1.3); Eosinophils % 0.1 % (0-4.4); Hematocrit 42.1 % (39.6-49.0); Hemoglobin 14.2 g/dL (13.6-17.9); Lymphocytes % 12.8 % (15.3-44.8); MCH 30.8 pg (27.0-35.0); MCHC 33.8 g/dL (32.0-36.0); MCV 91.3 fL (80-100); MPV 8.7 fL (7.6-11.3); Monocytes % 7.1 % (3.3-12.3); Neutrophils % 79.8 % (41.7-73.7); Platelets 310 thou/uL (152-406); RBC Red Blood Cell Count 4.61 M/uL (4.33-5.43); Red Cell Distribution Width 13.1 % (12.1-15.2)
[2024-10-17 05:46] LABS: Anion Gap 9.1 mEq/L (5.0-15.0); BUN Blood Urea Nitrogen 12 mg/dL (7-18); Bicarbonate 28 mEq/L (21-32); Glomerular Filtration Rate 94 ml/min (=/>90); Glucose Level 116 mg/dL (74-106); Potassium 4.1 mEq/L (3.5-5.1); Sodium Level 138 mEq/L (136-145)
[2024-10-17 05:59] LABS: Troponin High Sensitivity < 3.0 pg/mL (<58.9)
[2024-10-17] MEDS ORDERED: TIZANIDINE 4 MG TABLET PO PRN (06:16)
[2024-10-17] MEDS ORDERED: HYDROCODONE/APAP 10/325 TAB PO PRN (06:16)
[2024-10-17] MEDS ORDERED: DOXEPIN HCL 25 MG CAP PO PRN (06:21)
--- NOTE | 2024-10-17 07:53 | P.CNS ---
Date of Consult: 10/17/24 ENT consult Reason for consultation: Postoperative pain History of present illness: Ga is a 44-year-old with a history of severe sl eep apnea who underwent placement of hypoglossal nerve stimulator on October 08, [address] Wilks. Surgery was prolonged and complicated by challenging placement of the cuff and required more extensive than usual dissection around the hypoglossal nerve. The patient presented outpatient to the ENT clinic on postoperative day 3 with concerns for speech and swallowing problem and was noted to have partial right tongue weakness with mild dysarthria. His incisions externally appeared normal and reassurance was offered. The patient subsequently contacted the on-call ENT physician on postoperative day 8 with complaints of chest pain and shortness of breath. Due to the nature of the complaints, he was instructed to proceed to the emergency room for evaluation. At that time he was evaluated by the emergency room physician for a myriad of potential causes for chest pain and shortness of breath including myocardial infarction, pulmonary embolus, pneumonia, infection. He underwent CT of the neck and chest as well as EKG, chest x-ray and laboratory studies. All results were essentially negative with no significantly adverse findings. Following elimination of acute potentially life-threatening issues, the ER conferred with Dr. Wilks. Based on available information it was felt the pain may represent a muscle spasm related to placement of the sensor electrode between the intercostal muscles and outpatient versus observation treatments were offered including use of warm compresses, incentive spirometry, muscle relaxers, and hydration. The patient elected for observation and is scheduled to see Dr. Wilks on an outpatient basis on October 18. In personal conversation with this patient this morning, he did not sleep well due to the light sleep and noise from the hospital but his pain is much better and his breathing is easier today than it was yesterday. He has no new or additional complaints. He does note persistent right tongue weakness and mild speech dysarthria. Patient's past medical and surgical history is essentially unchanged from that performed by Dr. Wilks on October 08, 2024 with the exception of the placement of the implant. Data review, the patient's imaging including plain film x-rays performed on October 08 as well as imaging performed on October 16 is personally reviewed. The sensor and cuff appear to be in appropriate position. When comparing the RPG and the battery portion of the implant relative to the sensor, I suspect that the battery and RPG has settled more inferiorly but the sensor appears to be in stable condition. This is not unexpected due to the size of the pocket and duration since treatment where the RPG may have settled more inferiorly due to gravity. There is no evidence of pneumothorax or intrathoracic complications noted by the radiologist or on my review. There is no apparent evidence of fluid collection around the implant. Physical exam: Vital signs reviewed and stable. Patient is awake and alert and oriented. He is in no acute distress. Pupils are equal round reactive face is atraumatic and symmetric. His right tongue shows partial weakness. His right submandibular incision is clean dry and intact with subcutaneous sutures. There is no redness around the incision. There is no palpable fluctuance or drainage from the incision. There is mild induration extending about 1 to 1-1/2 cm inferior to the incision. There is no visible tethering of the lead under the soft tissues of the neck. His chest incision appears clean dry and intact with Steri-Strips overlying the incision. There is no redness of the skin. There is no palpable fluctuance. The implant is stable to palpation with no significant swelling or excessive tenderness. Assessment: Postoperative pain, improving. I suspect musculoskeletal cause. Obstructive sleep apnea status post hypoglossal nerve stimulator implant Plan: Discharge home to continue current home pain medications. I offered reassurance in regards to the testing which was performed and assisted in ruling out serious and life-threatening causes for chest pain and shortness of breath. We discussed the use of gentle pressure to the chest incision when coughing or sneezing to provide counterpressure and reduce pain. The patient can use ice packs to help reduce inflammation at the surgical site as desired. He may also consider use of a heating pad to the chest wall to help improve blood flow to the muscle and reduce muscle spasm. He is encouraged to continue gentle neck stretching. He is offered reassurance in regards to the tongue weakness and I would anticipate slow improvement over the next 6 to 12 weeks. Will keep his scheduled postoperative visit with Dr. Wilks on October 18.
[2024-10-17 08:30] VITALS: BP 139/69; TEMP 97.7
--- NOTE | 2024-10-17 08:33 | P.DS ---
Admission Date: 10/16/24 Discharge Date: 10/17/24 Disposition: ROUTINE DISCHARGE Discharge Condition: GOOD Reason for Admission: Chest pain Brief History of Present Illness: 44-year-old male with history of hypertension, sleep apnea presents the emergency department with chief complaint of right-sided pleuritic chest pain which has been going on since he woke up this morning. Of note he had the inspire procedure performed on 10/08 here with local ENT physician Dr. Wilks, he had been doing well postoperatively until this morning when he began to experience this pleuritic chest pain. He was evaluated in the emergency room his labs were significant for initial high sensitive troponin of less than 3, otherwise unremarkable CTA of the chest was performed which was negative for PE or other acute processes, likely mild dependent atelectasis and low lung volumes. CT soft tissue of the neck was also performed was negative for acute findings. Patient still with persistent pleuritic right-sided chest pain described as leelee re, worse with inspiration. Pain is unable to be controlled in the ED, will admit under observation for chest pain Hospital Course: Assessment: Pleuritic chest pain S/P inspire device placement 10/08 Sleep apnea hypertension Patient was admitted to the hospital for pleuritic chest pain status post inspire procedure. He had a CTA of his chest which was negative for pneumothorax, pulmonary embolism, other acute findings. He was treated overnight with [place], ketorolac and had significant proved in his symptoms and is currently feeling much better. He was also monitored on telemetry and his troponins trended, troponins were negative x 3 and no significant related pathology. He is stable for discharge and outpatient follow-up with Dr. Wilks in the clinic tomorrow. Vital Signs/Physical Exam: Temp Pulse Resp BP Pulse Ox 97.7 F 59 16 139/69 99 10/17/24 08:00 10/17/24 08:00 10/17/24 08:00 10/17/24 08:00 10/17/24 08:00 General: Alert, In no apparent distress, Oriented x3 HEENT: Atraumatic, PERRLA Neck: Supple, JVD not distended Respiratory: Clear to auscultation bilaterally, Normal air movement Cardiovascular: Regular rate/rhythm, Normal S1 S2 Gastrointestinal: Normal bowel sounds, No tenderness Musculoskeletal: No tenderness Integumentary: No rashes Neurological: Normal speech, Normal tone, Normal affect Laboratory Data at Discharge: WBC 9.50 thou/uL (4.3-10.9) 10/17/24 04:44 Hgb 14.2 g/dL (13.6-17.9) D 10/17/24 04:44 Hct 42.1 % (39.6-49.0) 10/17/24 04:44 Plt Count 310 thou/uL (152-406) 10/17/24 04:44 PT 12.2 SECONDS (9.4-12.5) 10/16/24 13:24 INR 1.09 10/16/24 13:24 Sodium 138 mEq/L (136-145) 10/17/24 04:44 Potassium 4.1 mEq/L (3.5-5.1) D 10/17/24 04:44 BUN 12 mg/dL (7-18) 10/17/24 04:44 Creatinine 1.02 mg/dL (0.70-1.30) 10/17/24 04:44 Glucose 116 mg/dL (74-106) H 10/17/24 04:44 Magnesium 2.1 mg/dL (1.6-2.4) 10/16/24 13:24 Total Bilirubin 1.0 mg/dL (0.2-1.0) 10/16/24 13:24 AST 30 U/L (15-37) 10/16/24 13:24 ALT 60 U/L (16-61) 10/16/24 13:24 Alkaline Phosphatase 72 U/L (45-117) 10/16/24 13:24 Lipase 54 U/L (13-75) 10/16/24 13:24 Home Medications: Doxepin HCl [[place]quan] 50 mg PO BEDTIME PRN PRN 10/16/24 Hydrocodone Bit/Acetaminophen [Hydrocodon-Acetaminophn 10-325] 10 mg PO Q6HR PRN 10/16/24 Tizanidine [Zanaflex*] 8 mg PO PRN PRN 10/16/24 Physician Discharge Instructions: Patient was admitted to the hospital for pleuritic chest pain status post inspire procedure. He had a CTA of his chest which was negative for pneumothorax, pulmonary embolism, other acute findings. He was treated overnight with [place], ketorolac and had significant proved in his symptoms and is currently feeling much better. He was also monitored on telemetry and his troponins trended, troponins were negative x 3 and no significant related pathology. He is stable for discharge and outpatient follow-up with Dr. Wilks in the clinic tomorrow. Diet: Regular Activity: Ad malika Followup: Juanjose Ballesteros MD [Primary Care Provider] - 1 Week Wen Murray PA [OUTSIDE PHYSICIAN] - 1 Day Time spent managing pt's care (in minutes): 40
[2024-10-17] MEDS: ENOXAPARIN 40 MG/0.4 ML SQ SCH (09:00)
--- NOTE | 2024-10-18 11:14 | EKG ---
Test Date: 2024-10-16 Test Time: 13:24:01 [place]: DAVID MEASUREMENT RESULTS: Intervals: Rate: 106 CO: 146 QRSD: 96 QT: 354 QTc: 470 [place]: P: 29 CO: 146 QRS: 7 T: 21 INTERPRETIVE STATEMENTS: Sinus tachycardia Nonspecific T wave abnormality Abnormal ECG Compared to ECG 08/24/2024 10:34:26 Sinus rhythm no longer present T-wave abnormality still present Electronically Signed On 10-18-24 11:11:21 [employer] CLERK by Álvaro Diana
== END 2024-10-17 10:22 | disposition home or self-care (01) ==
LOC: ER 13:12 → ERHOLD 16:58 → 2ND 17:28
PROVIDERS: ADMIT Internal Medicine; ATTEND Internal Medicine
DX: G89.18 Other acute postprocedural pain (principal); R07.81 Pleurodynia; I10 Essential (primary) hypertension; G47.33 Obstructive sleep apnea (adult) (pediatric); Z98.890 Other specified postprocedural states
CPT/HCPCS: 93005; 85025 ×2; 80048 ×2; 36415; 83735; 85610; 80076; 84484 ×3; 83690; 83880; 70491; 71275; 71045; 93970; 99285; Q9967; J7614; J7644; J1171; J2405; G0378 ×3